=== PATIENT | female | born 1985 | race American Indian/Alaskan Native ===

== ENCOUNTER 2018-01-28 10:20 | Emergency (ER) | payer MEDICARE ==
[2018-01-28 11:17] LABS: Hematocrit 41.6 % (30.3-42.9); Hemoglobin 13.4 gm/dl (10.1-14.3); Mean Corpuscular HGB Conc 32 % (30-34); Mean Corpuscular Hemoglobin 28 pg (28-32); Mean Corpuscular Volume 86 fl (79-97); Platelet Count 305 K/mm3 (140-440); Red Blood Count 4.82 M/mm3 (3.65-5.03); Red Cell Distribution Width 12.8 % (13.2-15.2)
--- NOTE | 2018-01-28 11:28 | Emergency Department Report ---
ED Seizure HPI - General Chief Complaint: Seizure Stated Complaint: SEIZURE Time Seen by Provider: 01/28/18 11:09 Source: patient, EMS Mode of arrival: Ambulatory Limitations: No Limitations - History of Present Illness Initial Comments: 32-year-old female with history of MS under the care of a Dr. whitley at [place] had a witnessed seizure. Boyfriend told the mom to similar previous she had no trauma she didn't hit her head no fever no neck pain she proceeded to be transferred by EMS apparently she has second seizure she really has been ? compliant with her Keppra w/ hx of noncompliance is here for 2 witnessed seizures, received versed 5 mg iv enroute by ems for second sz en route, arrives protecting airway follows commands postictal and sedated s/p mark RODRIGUES Complaint: seizure Description of Episode: loss of consciousness Seizure History: known seizure disorder, history of non-compliance - Related Data Home Medications Medication Instructions Recorded Confirmed Last Taken Diclofenac Sodium [Voltaren] 100 gm TP 4XD 07/03/16 10/16/16 Unknown Previous Rx's Medication Instructions Recorded Last Taken Type Famotidine [Pepcid] 20 mg PO BID #60 tablet 07/07/16 Unknown Rx Gabapentin [Neurontin] 300 mg PO Q8HR #90 capsule 07/07/16 Unknown Rx Primidone [Mysoline] 50 mg PO BID #60 tablet 07/07/16 Unknown Rx levETIRAcetam [Keppra TAB] 500 mg PO BID #60 tablet 07/07/16 Unknown Rx Allergies Allergy/AdvReac Type Severity Reaction Status Date / Time No Known Allergies Allergy Verified 06/26/14 04:33 ED Review of Systems ROS: Stated complaint: SEIZURE Other details as noted in HPI Comment: Unobtainable due to pts medical conditions (patient is sedated and postictal unable to give complete review of systems family denies fever family denies trauma denies chest or abdominal pain or other injuries) ED Past Medical Hx - Past Medical History Previous Medical History?: Yes Hx Congestive Heart Failure: No Hx Diabetes: No Hx Seizures: Yes Hx Asthma: No Hx COPD: No Additional medical history: MS - Surgical History Past Surgical History?: No - Social History Smoking Status: Never Smoker - Medications Home Medications: Home Medications Medication Instructions Recorded Confirmed Last Taken Type Diclofenac Sodium [Voltaren] 100 gm TP 4XD 07/03/16 10/16/16 Unknown History Famotidine [Pepcid] 20 mg PO BID #60 tablet 07/07/16 10/16/16 Unknown Rx Gabapentin [Neurontin] 300 mg PO Q8HR #90 capsule 07/07/16 10/16/16 Unknown Rx Primidone [Mysoline] 50 mg PO BID #60 tablet 07/07/16 10/16/16 Unknown Rx levETIRAcetam [Keppra TAB] 500 mg PO BID #60 tablet 07/07/16 10/16/16 Unknown Rx ED Physical Exam - General Limitations: No Limitations, Other (postictal sedated en route) - Head Head exam: Present: atraumatic, normocephalic - Eye Eye exam: Present: PERRL, EOMI - ENT ENT exam: Present: normal exam, normal orophraynx, other (no stridor or drooling good gag) - Neck Neck exam: Present: normal inspection. Absent: tenderness, meningismus - Respiratory Respiratory exam: Present: normal lung sounds bilaterally. Absent: respiratory distress, wheezes, rales, rhonchi, stridor, chest wall tenderness, accessory muscle use, decreased breath sounds, prolonged expiratory - Cardiovascular Cardiovascular Exam: Present: regular rate, normal rhythm, normal heart sounds. Absent: irregular rhythm - GI/Abdominal GI/Abdominal exam: Present: soft. Absent: tenderness, guarding, rebound, rigid , mass, bruit, pulsatile mass - Extremities Exam Extremities exam: Present: normal inspection, normal capillary refill. Absent: pedal edema, joint swelling, calf tenderness - Neurological Exam Neurological exam: Present: CN II-XII intact, other (postictal patient is arousable following some commands but is sedated with good gag nonfocal neuro exam). Absent: motor sensory deficit ED Course Vital Signs 01/28/18 01/28/18 01/28/18 11:03 11:10 11:15 Temperature 97.9 F Pulse Rate 84 Respiratory 16 Rate Blood Pressure 131/69 Blood Pressure 131/69 [Left] O2 Sat by Pulse 99 100 100 Oximetry 01/28/18 01/28/18 01/28/18 11:31 11:45 12:01 Temperature Pulse Rate 72 68 Respiratory 17 16 Rate Blood Pressure 131/69 131/69 123/63 Blood Pressure [Left] O2 Sat by Pulse 98 100 100 Oximetry 01/28/18 01/28/18 01/28/18 12:15 12:31 12:45 Temperature Pulse Rate 68 69 71 Respiratory 17 19 18 Rate Blood Pressure 123/63 123/63 123/63 Blood Pressure [Left] O2 Sat by Pulse 100 100 99 Oximetry 01/28/18 01/28/18 01/28/18 13:00 13:15 13:31 Temperature Pulse Rate 69 67 65 Respiratory 17 19 18 Rate Blood Pressure 128/68 128/68 128/68 Blood Pressure [Left] O2 Sat by Pulse 97 97 99 Oximetry 01/28/18 01/28/18 01/28/18 14:03 14:15 14:31 Temperature Pulse Rate Respiratory Rate Blood Pressure 128/68 128/68 128/68 Blood Pressure [Left] O2 Sat by Pulse 99 98 98 Oximetry 01/28/18 14:45 Temperature Pulse Rate Respiratory Rate Blood Pressure 129/71 Blood Pressure [Left] O2 Sat by Pulse 98 Oximetry ED Medical Decision Making - Lab Data Result diagrams: 01/28/18 11:08 01/28/18 11:05 - Radiology Data Radiology results: report reviewed - Medical Decision Making Head CT shows chronic change. Old chart does state patient does have a history of poor compliance. She was a full dose of Keppra after A level was sent laboratory studies are unremarkable patient has no evidence would indicate drug or alcohol use is involved does seem to be chronic seizure disorder with noncompliance she is more arousable now is gone commands does recognize her mother does have a good gag reflex does seem to be able to be discharged home in the mother's care for further evaluation by her [place] neurologist Critical care attestation.: If time is entered above; I have spent that time in minutes in the direct care of this critically ill patient, excluding procedure time. ED Disposition Clinical Impression: Seizure, Noncompliance Disposition: DC-01 TO HOME OR SELFCARE Is pt being admited?: No Condition: Stable Instructions: Recurrent Seizures Adult (ED) Additional Instructions: See her and re-neurologist in 2 days return if new or alarming symptoms or call 911 Referrals: PRIMARY CARE, [Primary Care Provider] - 3-5 Days Time of Disposition: 15:01
[2018-01-28 11:30] LABS: BUN/Creatinine Ratio 18; Blood Urea Nitrogen 9 mg/dL (7-17); Calcium 8.8 mg/dL (8.4-10.2); Hemolysis Index 11
[2018-01-28] MEDS ORDERED: KEPPRA 500 MG/NS 0.82% 100 ML 500 MG/100 ML BAG IV ONE (13:00)
--- NOTE | 2018-01-28 14:38 | Cat Scan Report ---
CT HEAD WITHOUT CONTRAST: HISTORY: Seizure. TECHNIQUE: Sequential 2.5mm CT images. COMPARISON: none. FINDINGS: Mild to moderate nonspecific chronic white matter changes are again noted and unchanged. These findings appear slightly advanced for this persons age. This could be related to demyelination or chronic small vessel disease among other etiologies. There is no evidence for hemorrhage, mass, chronic infarct or extra-axial fluid collection. Ventricular size is normal. The posterior fossa contents are unremarkable. The calvarium is intact. The visualized sinuses and mastoid air cells are well-aerated. IMPRESSION: No change since 07/03/16. Chronic white matter changes as described above. Please correlate with the patient's clinical presentation and history.
[2018-01-28 14:50] VITALS: BP 129/71
== END 2018-01-28 15:58 | disposition home or self-care (01) ==
LOC: ED 10:20
DX: G40.909 Epilepsy, unspecified, not intractable, without status epilepticus (principal)
CPT/HCPCS: 36415; 70450; 80048; 84703; 85027; 96374; 99285; J1953

== ENCOUNTER 2018-03-25 01:46 | Emergency (ER) | payer MEDICARE ==
[2018-03-25] MEDS ORDERED: KEPPRA 1,000 MG/NS 0.75% 100ML 1,000 MG/100 ML BAG IV ONE (02:09)
[2018-03-25] MEDS ORDERED: NACL 0.9% 1000 ML 1,000 ML IV ONE (02:09)
--- NOTE | 2018-03-25 02:13 | Emergency Department Report ---
HPI - General Chief Complaint: Seizure Time Seen by Provider: 03/25/18 02:04 - HPI HPI: 32-year-old female presents to the emergency department by EMS from home after she had a seizure. It was not initially witnessed by family but they heard a "thump" and found her on the ground and did see some seizure-like activity when they found her. She does have a seizure history and is usually on Keppra. She also has a history of multiple sclerosis. Her last seizure prior to today was about 3 months ago. She received 5 mg of Versed in route. Mom says that she has been sleepy since the Versed but has occasionally been trying to talk with them. They say that her multiple sclerosis is rather advanced dementia does not walk but normally is awake and alert and conversive. Currently she is sleepy and/or postictal and is a poor historian. ED Past Medical Hx - Past Medical History Previous Medical History?: Yes Hx Congestive Heart Failure: No Hx Diabetes: No Hx Seizures: Yes Hx Asthma: No Hx COPD: No Additional medical history: MS - Social History Smoking Status: Never Smoker Substance Use Type: None - Medications Home Medications: Home Medications Medication Instructions Recorded Confirmed Last Taken Type Diclofenac Sodium [Voltaren] 100 gm TP 4XD 07/03/16 10/16/16 Unknown History Famotidine [Pepcid] 20 mg PO BID #60 tablet 07/07/16 10/16/16 Unknown Rx Gabapentin [Neurontin] 300 mg PO Q8HR #90 capsule 07/07/16 10/16/16 Unknown Rx Primidone [Mysoline] 50 mg PO BID #60 tablet 07/07/16 10/16/16 Unknown Rx levETIRAcetam [Keppra TAB] 500 mg PO BID #60 tablet 07/07/16 10/16/16 Unknown Rx levETIRAcetam [Keppra] 500 mg PO BID #28 tablet 01/28/18 Unknown Rx ED Review of Systems ROS: Stated complaint: SEIZURE Other details as noted in HPI Comment: Unobtainable due to pts medical conditions Physical Exam - Physical Exam Physical Exam: GENERAL: Patient is sleepy and/or postictal. HENT: Normocephalic. Atraumatic. Patient has moist mucous membranes. EYES: Patient spontaneously will open eyes or to verbal stimuli. Pupils equal reactive to light bilaterally. NECK: Supple. Trachea is midline. CHEST/LUNGS: Clear to auscultation. There is no respiratory distress noted. HEART/CARDIOVASCULAR: Regular. There is no tachycardia. There is no murmur. ABDOMEN: Abdomen is soft, nontender. Patient has normal bowel sounds. There is no abdominal distention. SKIN: Skin is warm and dry. NEURO: Patient is very fatigued and postictal but will occasionally open her eyes spontaneously and will do so to verbal cues. MUSCULOSKELETAL: There is no tenderness or deformity. There is no evidence of acute injury. ED Medical Decision Making - Lab Data Result diagrams: 03/25/18 02:42 03/25/18 02:42 - EKG Data -: EKG Interpreted by Oh EKG shows normal: sinus rhythm, axis, intervals, QRS complexes, ST-T waves Rate: normal - EKG Data When compared to previous EKG there are: previous EKG unavailable Interpretation: normal EKG - Radiology Data Radiology results: report reviewed EXAM: CT CERVICAL SPINE WO CON HISTORY: Seizure TECHNIQUE: CT imaging is acquired through the cervical spine without contrast. Transaxial, coronal and sagittal reformations are provided. PRIORS: None. FINDINGS: The cervical spine is intact. Vertebral body heights are preserved. No acute fracture or listhesis. Atlanto-dens interval and odontoid process are intact. Intervertebral disc spaces are preserved. No perivertebral soft tissue swelling or hematoma identified. Limited soft tissue exam of the visualized neck is unremarkable. IMPRESSION: No acute cervical spine fracture identified. Correlate with physical exam and follow up as warranted. Transcribed By: MB Dictated By: CARMEN HAMPTON MD Electronically Authenticated By: CARMEN HAMPTON MD Signed Date/Time: 03/25/18 0445 EXAM: CT HEAD/BRAIN WO CON HISTORY: Seizure TECHNIQUE: CT imaging acquired through the head without intravenous contrast. Transaxial reformations are provided. PRIORS: 01/28/2018, 07/03/2016 FINDINGS: The ventricles, cisterns and sulci are within normal limits. Septum pellucidum anatomic variation is again noted. No intraparenchymal or extra-axial mass, hemorrhage, or mass effect. Deep and subcortical white matter hypodensities that are slightly confluent in the left periventricular region are unchanged. Normal spherical shape of the globes. Paranasal sinuses and mastoid air cells are clear. No acute skull or facial fracture visualized. Small skull defect posterior to the left mastoid is unchanged. IMPRESSION: No acute intracranial abnormality. Chronic white matter findings are unchanged from prior CT exams and remain abnormal in this young patient. Follow-up MRI is recommended if these findings have not been previously further characterized. Transcribed By: LEONEL Dictated By: CARMEN HAMPTON MD Electronically Authenticated By: CARMEN HAMPTON MD Signed Date/Time: 03/25/18 3940 - Medical Decision Making Patient presented after having a seizure and fell from bed. No visible or obvious injuries but a CT scan of the head and cervical spines were done that did not show any acute process including any fracture, bleed, shift, mass, subluxation. Labs have been mostly unremarkable. She was loaded with Keppra. Vital signs stable throughout ED course. She was reevaluated multiple times for multiple hours and she has started to wake up and get back towards her baseline mental status. Prior to discharge she has begun speaking to her mother and will answer some of my questions. Mom is comfortable that she is close to her baseline status and she has good follow-up with her neurologist and primary. The patient does not walk at baseline so she was assisted into a wheelchair and mom took her home upon discharge. They have been instructed to return to the emergency department with any further seizures or any acute process. - Differential Diagnosis epilepsy, multiple sclerosis, TIA, fracture Critical Care Time: No Critical care attestation.: If time is entered above; I have spent that time in minutes in the direct care of this critically ill patient, excluding procedure time. ED Disposition Clinical Impression: Multiple sclerosis, Seizure Disposition: DC-01 TO HOME OR SELFCARE Is pt being admited?: No Condition: Stable Instructions: Epilepsy (ED) Additional Instructions: Please follow-up with your neurologist in the next few days. Continue taking your seizure medications. Return to the emergency department immediately with any return of further seizures or any worsening of her symptoms or any acute distress. Referrals: PRIMARY MD JULIETTE [Primary Care Provider] - [facility] Time of Disposition: 06:08
[2018-03-25 02:53] LABS: Basophils # (Auto) 0.1 K/mm3 (0.0-0.1); Basophils % (Auto) 0.9 % (0.0-1.8); Eosinophils # (Auto) 0.1 K/mm3 (0.0-0.4); Eosinophils % (Auto) 1.3 % (0.0-4.3); Hematocrit 37.7 % (30.3-42.9); Hemoglobin 12.7 gm/dl (10.1-14.3); Lymphocytes # (Auto) 0.9 K/mm3 (1.2-5.4); Lymphocytes % (Auto) 17.1 % (13.4-35.0); Mean Corpuscular HGB Conc 34 % (30-34); Mean Corpuscular Hemoglobin 28 pg (28-32); Mean Corpuscular Volume 84 fl (79-97); Monocytes # (Auto) 0.8 K/mm3 (0.0-0.8); Monocytes % (Auto) 14.8 % (0.0-7.3); Platelet Count 289 K/mm3 (140-440); Red Blood Count 4.48 M/mm3 (3.65-5.03); Red Cell Distribution Width 12.8 % (13.2-15.2)
[2018-03-25 03:27] LABS: Alanine Aminotransferase 9 units/L (7-56); BUN/Creatinine Ratio 16; Blood Urea Nitrogen 11 mg/dL (7-17); Calcium 8.9 mg/dL (8.4-10.2); Hemolysis Index 6
[2018-03-25 03:43] LABS: Albumin 3.8 g/dL (3.9-5)
--- NOTE | 2018-03-25 04:45 | Cat Scan Report ---
FINAL REPORT EXAM: CT HEAD/BRAIN WO CON HISTORY: Seizure TECHNIQUE: CT imaging acquired through the head without intravenous contrast. Transaxial reformations are provided. PRIORS: 01/28/2018, 07/03/2016 FINDINGS: The ventricles, cisterns and sulci are within normal limits. Septum pellucidum anatomic variation is again noted. No intraparenchymal or extra-axial mass, hemorrhage, or mass effect. Deep and subcortical white matter hypodensities that are slightly confluent in the left periventricular region are unchanged. Normal spherical shape of the globes. Paranasal sinuses and mastoid air cells are clear. No acute skull or facial fracture visualized. Small skull defect posterior to the left mastoid is unchanged. IMPRESSION: No acute intracranial abnormality. Chronic white matter findings are unchanged from prior CT exams and remain abnormal in this young patient. Follow-up MRI is recommended if these findings have not been previously further characterized.
--- NOTE | 2018-03-25 04:50 | Cat Scan Report ---
FINAL REPORT EXAM: CT CERVICAL SPINE WO CON HISTORY: Seizure TECHNIQUE: CT imaging is acquired through the cervical spine without contrast. Transaxial, coronal and sagittal reformations are provided. PRIORS: None. FINDINGS: The cervical spine is intact. Vertebral body heights are preserved. No acute fracture or listhesis. Atlanto-dens interval and odontoid process are intact. Intervertebral disc spaces are preserved. No perivertebral soft tissue swelling or hematoma identified. Limited soft tissue exam of the visualized neck is unremarkable. IMPRESSION: No acute cervical spine fracture identified. Correlate with physical exam and follow up as warranted.
[2018-03-25 06:37] VITALS: BP 118/77
== END 2018-03-25 06:35 | disposition home or self-care (01) ==
LOC: ED 01:46
DX: G35 Multiple sclerosis (principal); R56.9 Unspecified convulsions
CPT/HCPCS: 36415; 70450; 72125; 80053; 82550; 84703; 85025; 93005; 93010; 96361; 96365; 99285; G0480; J1953; J7030; 80320

== ENCOUNTER 2018-08-06 01:37 | Emergency (ER) | payer MEDICARE ==
[2018-08-06 02:22] LABS: Hematocrit 40.2 % (30.3-42.9); Hemoglobin 13.1 gm/dl (10.1-14.3); Mean Corpuscular HGB Conc 33 % (30-34); Mean Corpuscular Hemoglobin 29 pg (28-32); Mean Corpuscular Volume 90 fl (79-97); Platelet Count 253 K/mm3 (140-440); Red Blood Count 4.48 M/mm3 (3.65-5.03); Red Cell Distribution Width 12.7 % (13.2-15.2)
[2018-08-06] MEDS ORDERED: ATIVAN ONE (02:27)
[2018-08-06 02:37] LABS: Alanine Aminotransferase 42 units/L (7-56); Albumin 3.8 g/dL (3.9-5); BUN/Creatinine Ratio 33; Blood Urea Nitrogen 20 mg/dL (7-17); Calcium 8.6 mg/dL (8.4-10.2); Hemolysis Index 15
[2018-08-06] MEDS ORDERED: ATIVAN IV ONE (03:35)
[2018-08-06 04:01] LABS: Anisocytosis 1+; Band Neutrophils # (Manual) 0.1 K/mm3; Basophils % (Manual) 0 % (0.0-1.8); Platelet Estimate Consistent w Auto; Total Cells Counted 100
--- NOTE | 2018-08-06 05:43 | Cat Scan Report ---
FINAL REPORT EXAM: CT HEAD/BRAIN WO CON HISTORY: seizure, hx of MS TECHNIQUE: Routine axial imaging was obtained of the brain without IV contrast and compared to the study of 03/25/2018. FINDINGS: There is mild generalized volume loss. There is no evidence of acute stroke or hemorrhage. The ventricular system is appropriate in size and is symmetric. There is diminished attenuation of the periventricular white matter bilaterally suggesting chronic microvascular disease changes. The visualized sinuses are clear but the mastoid air cells are well pneumatized. The calvarium appears intact. IMPRESSION: Mild generalized atrophy with chronic ischemic white matter disease changes. No evidence of acute stroke or hemorrhage.
--- NOTE | 2018-08-06 06:19 | Emergency Department Report ---
ED Seizure HPI - General Chief Complaint: Seizure Stated Complaint: SEIZURE Time Seen by Provider: 08/06/18 03:13 Source: family Mode of arrival: Wheelchair Limitations: Physical Limitation - History of Present Illness Initial Comments: 33-year-old female with history of MS and seizures presents to the ED following seizure activity at home. She currently takes Depakote. Mother states she heard patient fall in another room, went in to check on her and she was on the floor having a seizure. Unsure if patient hit her head. States patient had no complaints prior to the seizure tonight. MD Complaint: seizure -: Sudden, During the night Description of Episode: loss of consciousness, tonic-clonic movement Witnessed:: Yes Trauma: Yes (fell to floor) Seizure History: known seizure disorder Place: home Possible Precipitating Event: none Associated Symptoms: denies: fever/chills Treatments Prior to Arrival: none - Related Data Home Medications Medication Instructions Recorded Confirmed Last Taken Diclofenac Sodium [Voltaren] 100 gm TP 4XD 07/03/16 08/06/18 Unknown Divalproex Sodium ER 1,000 mg PO DAILY 08/06/18 08/06/18 Unknown Gabapentin [Neurontin] 300 mg PO BID 08/06/18 08/06/18 Unknown Previous Rx's Medication Instructions Recorded Last Taken Type Famotidine [Pepcid] 20 mg PO BID #60 tablet 07/07/16 Unknown Rx Primidone [Mysoline] 50 mg PO BID #60 tablet 07/07/16 Unknown Rx Allergies Allergy/AdvReac Type Severity Reaction Status Date / Time No Known Allergies Allergy Verified 06/26/14 04:33 ED Review of Systems ROS: Stated complaint: SEIZURE Other details as noted in HPI Comment: All other systems reviewed and negative Constitutional: denies: fever Neurological: denies: headache ED Past Medical Hx - Past Medical History Hx Congestive Heart Failure: No Hx Diabetes: No Hx Seizures: Yes Hx Asthma: No Hx COPD: No Additional medical history: MS - Surgical History Past Surgical History?: No - Social History Smoking Status: Never Smoker Substance Use Type: None - Medications Home Medications: Home Medications Medication Instructions Recorded Confirmed Last Taken Type Diclofenac Sodium [Voltaren] 100 gm TP 4XD 07/03/16 08/06/18 Unknown History Famotidine [Pepcid] 20 mg PO BID #60 tablet 07/07/16 08/06/18 Unknown Rx Primidone [Mysoline] 50 mg PO BID #60 tablet 07/07/16 08/06/18 Unknown Rx Divalproex Sodium ER 1,000 mg PO DAILY 08/06/18 08/06/18 Unknown History Gabapentin [Neurontin] 300 mg PO BID 08/06/18 08/06/18 Unknown History ED Physical Exam - General Limitations: Physical Limitation General appearance: lethargic, postictal - Head Head exam: Present: atraumatic - Eye Eye exam: Present: normal appearance, PERRL - Neck Neck exam: Present: normal inspection - Respiratory Respiratory exam: Present: normal lung sounds bilaterally. Absent: respiratory distress - Cardiovascular Cardiovascular Exam: Present: regular rate, normal rhythm - GI/Abdominal GI/Abdominal exam: Present: soft. Absent: tenderness - Extremities Exam Extremities exam: Present: normal inspection - Neurological Exam Neurological exam: Present: other (lethargic, unable to arouse) - Skin Skin exam: Present: warm, dry, intact, normal color ED Course Vital Signs 08/06/18 08/06/18 08/06/18 01:43 02:13 02:15 Temperature 98.9 F Pulse Rate 72 78 Respiratory 20 16 16 Rate Blood Pressure 144/82 Blood Pressure 121/62 [Left] O2 Sat by Pulse 96 100 Oximetry ED Medical Decision Making - Lab Data Result diagrams: 08/06/18 02:05 08/06/18 02:05 - Medical Decision Making CT head negative. Patient has been sleeping in ER during his stay. Received 2 mg of Ativan for active seizure here in the ED earlier. Patient now easily arousable. Depakote level was low so patient was given PO Depakote. Able to take without difficulty. Mother states patient is at baseline. We'll discharge home at this time - Differential Diagnosis seizure, electrolyte abnormality, subtherapeutic meds Critical care attestation.: If time is entered above; I have spent that time in minutes in the direct care of this critically ill patient, excluding procedure time. ED Disposition Clinical Impression: Seizure Disposition: DC-01 TO HOME OR SELFCARE Is pt being admited?: No Condition: Stable Instructions: Epilepsy (ED) Referrals: PRIMARY CARE, [Primary Care Provider] - 3-5 Days Time of Disposition: 06:20
[2018-08-06 06:23] VITALS: BP 114/54
== END 2018-08-06 06:49 | disposition home or self-care (01) ==
LOC: ED 01:37
DX: R56.9 Unspecified convulsions (principal)
CPT/HCPCS: 36415; 70450; 80053; 80164; 84703; 85007; 85025; 96374; 99284; J2060

== ENCOUNTER 2019-02-17 12:28 | Inpatient (IN) | payer MEDICARE ==
--- NOTE | 2019-02-17 13:43 | Emergency Department Report ---
HPI - General Chief Complaint: Altered Mental Status Time Seen by Provider: 02/17/19 13:38 - HPI HPI: Room 9 The patient is a 33-year-old female presenting with a chief complaint seizures. The patient has a history of seizures and per mother has not been fully compliant with his Depakote for the last week. Family witnessed the patient had a seizure at home and EMS was called. EMS reported 3 more seizures and the patient was administered Versed in the ED the patient is postictal and opens her eyes to sternal rub but does not speak yet Location: [facility] Duration: [See above] Quality: Generalized tonic-clonic Severity: [See above] Modifying factors: [see above] Context: [see above] Mode of transportation: [not driving] ED Past Medical Hx - Past Medical History Previous Medical History?: Yes Hx Seizures: Yes Additional medical history: MS - Surgical History Past Surgical History?: No - Family History Family history: no significant - Social History Smoking Status: Never Smoker Substance Use Type: Alcohol (occasional) - Medications Home Medications: Home Medications Medication Instructions Recorded Confirmed Last Taken Type Diclofenac Sodium [Voltaren] 100 gm TP 4XD 07/03/16 08/06/18 Unknown History Famotidine [Pepcid] 20 mg PO BID #60 tablet 07/07/16 08/06/18 Unknown Rx Primidone [Mysoline] 50 mg PO BID #60 tablet 07/07/16 08/06/18 Unknown Rx Divalproex Sodium ER 1,000 mg PO DAILY 08/06/18 08/06/18 Unknown History Gabapentin [Neurontin] 300 mg PO BID 08/06/18 08/06/18 Unknown History ED Review of Systems ROS: Stated complaint: SEIZURE Other details as noted in HPI Comment: Unobtainable due to pts medical conditions Physical Exam - Physical Exam Vital Signs: Vital Signs 02/17/19 13:23 Pulse Rate 84 Respiratory 18 Rate Blood Pressure 116/64 O2 Sat by Pulse 100 Oximetry Physical Exam: GENERAL: The patient is well-developed well-nourished female lying on stretcher postictal sleeping not appearing to be in acute distress. [] HEENT: Normocephalic. Atraumatic. Extraocular motions are intact. Patient has moist mucous membranes. NECK: Supple. Trachea midline CHEST/LUNGS: Clear to auscultation. There is no respiratory distress noted. HEART/CARDIOVASCULAR: Regular. There is no tachycardia. There is no gallop rub or murmur. ABDOMEN: Abdomen is soft, nontender. Patient has normal bowel sounds. There is no abdominal distention. SKIN: There is no rash. There is trace bilateral lower extremity pitting edema. There is no diaphoresis. NEURO: The patient is postictal MUSCULOSKELETAL: There is no evidence of acute injury. ED Course Vital Signs 02/17/19 13:23 Pulse Rate 84 Respiratory 18 Rate Blood Pressure 116/64 O2 Sat by Pulse 100 Oximetry - Reevaluation(s) Reevaluation #1: 02/17/19 15:26 Patient remains postictal. Will admit to the hospital for status epilepticus ED Medical Decision Making - Lab Data Result diagrams: 02/17/19 13:46 02/17/19 13:46 Laboratory Tests 02/17/19 02/17/19 02/17/19 13:46 13:46 13:46 WBC 5.6 RBC 4.21 Hgb 12.3 Hct 37.0 MCV 88 MCH 29 MCHC 33 RDW 12.8 L Plt Count 282 Lymph % (Auto) 8.9 L [place] % (Auto) 10.3 H Eos % (Auto) 0.2 Baso % (Auto) 0.8 Lymph # 0.5 L [place] # 0.6 Eos # 0.0 Baso # 0.0 Seg Neutrophils % 79.8 H Seg Neutrophils # 4.4 Sodium 140 Potassium 4.5 Chloride 103.7 Carbon Dioxide 25 Anion Gap 16 BUN 9 Creatinine 0.5 L Estimated GFR > 60 BUN/Creatinine Ratio 18 Glucose 109 H Calcium 8.6 Magnesium 1.90 Total Bilirubin 0.40 AST 18 ALT 12 Alkaline Phosphatase 39 Total Protein 6.5 Albumin 3.8 L Albumin/Globulin Ratio 1.4 HCG, Qual Valproic Acid < 2.8 L 02/17/19 13:46 WBC RBC Hgb Hct MCV MCH MCHC RDW Plt Count Lymph % (Auto) [place] % (Auto) Eos % (Auto) Baso % (Auto) Lymph # [place] # Eos # Baso # Seg Neutrophils % Seg Neutrophils # Sodium Potassium Chloride Carbon Dioxide Anion Gap BUN Creatinine Estimated GFR BUN/Creatinine Ratio Glucose Calcium Magnesium Total Bilirubin AST ALT Alkaline Phosphatase Total Protein Albumin Albumin/Globulin Ratio HCG, Qual Negative Valproic Acid - Radiology Data Radiology results: report reviewed (CT head), image reviewed (CT head) [facility] [address] [place] [address] Cat Scan Report Signed Patient: JUSTIN WELLS MR# : [id number] : 1985 Acct:[id number] Age/Sex: 33 / F ADM Date: 02/17/19 Loc: ED Attending Dr: Ordering Physician: RAJIV ARANA MD Date of Service: 02/17/19 Procedure(s): CT head/brain wo con Accession Number(s): [id number] cc: RAJIV ARANA MD CT HEAD WITHOUT CONTRAST: HISTORY: Multiple seizures, MS. TECHNIQUE: Sequential CT images without contrast. FINDINGS: Compared to 08/06/18. Mild cortical volume loss and mild nonspecific chronic white matter changes are again identified. There is no evidence for hemorrhage, mass or extra-axial fluid collection. No large area of acute ischemia is identified. Focal areas of diminished attenuation in the periventricular white matter of left posterior frontal and bilateral parietal lobes is again noted and probably related to history of multiple sclerosis. These findings are stable. The posterior fossa contents are unremarkable. Moderate mucosal thickening is noted in the right maxillary sinus. The remaining sinuses and mastoid air cells are clear. IMPRESSION: No acute intracranial process. Mild volume loss and white matter changes as described. No significant change since 08/06/18. Transcribed By: TTR Dictated By: SALENA NATH JR, MD Electronically Authenticated By: SALENA NATH JR, MD Signed Date/Time: 02/17/191513 DD/ 151 TD/TT: 02/17/19 151 - Differential Diagnosis seizures, status epilepticus Critical care attestation.: If time is entered above; I have spent that time in minutes in the direct care of this critically ill patient, excluding procedure time. ED Disposition Clinical Impression: Status epilepticus Disposition: - OP ADMIT IP TO THIS HOSP Is pt being admited?: Yes Does the pt Need Aspirin: No Condition: Fair Referrals: DEV BARRETT MD [Primary Care Provider] - 3-5 Days Time of Disposition: 15:25 (hospitalist paged (Dr Gallego))
[2019-02-17 14:04] LABS: Basophils % (Auto) 0.8 % (0.0-1.8); Eosinophils % (Auto) 0.2 % (0.0-4.3); Hemoglobin 12.3 gm/dl (10.1-14.3); Lymphocytes # (Auto) 0.5 K/mm3 (1.2-5.4); Lymphocytes % (Auto) 8.9 % (13.4-35.0); Mean Corpuscular HGB Conc 33 % (30-34); Mean Corpuscular Volume 88 fl (79-97); Monocytes # (Auto) 0.6 K/mm3 (0.0-0.8); Monocytes % (Auto) 10.3 % (0.0-7.3); Platelet Count 282 K/mm3 (140-440); Red Blood Count 4.21 M/mm3 (3.65-5.03); Red Cell Distribution Width 12.8 % (13.2-15.2)
[2019-02-17] MEDS ORDERED: DepaCON 500 MG in NACL 0.9% 100 ML IV ONE (14:26)
[2019-02-17 14:27] LABS: Alanine Aminotransferase 12 units/L (7-56); Albumin 3.8 g/dL (3.9-5); BUN/Creatinine Ratio 18; Blood Urea Nitrogen 9 mg/dL (7-17); Calcium 8.6 mg/dL (8.4-10.2); Hemolysis Index 36
--- NOTE | 2019-02-17 15:18 | Cat Scan Report ---
CT HEAD WITHOUT CONTRAST: HISTORY: Multiple seizures, MS. TECHNIQUE: Sequential CT images without contrast. FINDINGS: Compared to 08/06/18. Mild cortical volume loss and mild nonspecific chronic white matter changes are again identified. There is no evidence for hemorrhage, mass or extra-axial fluid collection. No large area of acute ischemia is identified. Focal areas of diminished attenuation in the periventricular white matter of left posterior frontal and bilateral parietal lobes is again noted and probably related to history of multiple sclerosis. These findings are stable. The posterior fossa contents are unremarkable. Moderate mucosal thickening is noted in the right maxillary sinus. The remaining sinuses and mastoid air cells are clear. IMPRESSION: No acute intracranial process. Mild volume loss and white matter changes as described. No significant change since 08/06/18.
--- NOTE | 2019-02-17 22:15 | Event Note ---
Date: 02/17/19 See H/p in reports Seizur -uncontolled Noncompliance
[2019-02-17] MEDS ORDERED: DILAUDID IV PRN (22:18)
[2019-02-17] MEDS ORDERED: TYLENOL PO PRN (22:18)
[2019-02-17] MEDS ORDERED: SODIUM CHLORIDE FLUSH SYRINGE 10 ML IV PRN (22:18)
[2019-02-17] MEDS ORDERED: ZOFRAN IV PRN (22:18)
[2019-02-17] MEDS ORDERED: PERCOCET 5/325 PO PRN (22:18)
[2019-02-17] MEDS: NACL 0.9% 1000 ML 1,000 ML IV SCH (23:40)
[2019-02-17] MEDS: SODIUM CHLORIDE FLUSH SYRINGE 10 ML IV SCH (23:41)
[2019-02-17] MEDS: NEURONTIN PO SCH (23:41)
[2019-02-17] MEDS: MYSOLINE PO SCH (23:41)
[2019-02-17] MEDS: KEPPRA 750 MG in NACL 0.9% 100 ML IV SCH (23:41)
[2019-02-18 06:05] LABS: Basophils % (Auto) 0.6 % (0.0-1.8); Eosinophils % (Auto) 0.4 % (0.0-4.3); Hemoglobin 11.2 gm/dl (10.1-14.3); Lymphocytes # (Auto) 1.6 K/mm3 (1.2-5.4); Lymphocytes % (Auto) 25.6 % (13.4-35.0); Mean Corpuscular HGB Conc 33 % (30-34); Mean Corpuscular Volume 88 fl (79-97); Monocytes # (Auto) 0.8 K/mm3 (0.0-0.8); Monocytes % (Auto) 13.9 % (0.0-7.3); Platelet Count 270 K/mm3 (140-440); Red Blood Count 3.87 M/mm3 (3.65-5.03); Red Cell Distribution Width 12.8 % (13.2-15.2)
[2019-02-18 06:28] LABS: Alanine Aminotransferase 9 units/L (7-56); Albumin 3.3 g/dL (3.9-5); BUN/Creatinine Ratio 14; Blood Urea Nitrogen 7 mg/dL (7-17); Calcium 8.6 mg/dL (8.4-10.2); Hemolysis Index 6
--- NOTE | 2019-02-18 07:27 | History and Physical Report ---
CHIEF COMPLAINT: Recurrent seizures. HISTORY OF PRESENT ILLNESS: A 33-year-old female with history of seizures. Not compliant with her Depakote as per mother, comes in for seizures at home. Also en route, as per EMS, the patient had 3 tonic-clonic seizures. The patient is altered and postictal. Opens her eyes to deep sternal rub. Decreased responsiveness. PAST MEDICAL HISTORY: Seizure disorder and questionable multiple sclerosis. PAST SURGICAL HISTORY: None. FAMILY HISTORY: Hypertension. SOCIAL HISTORY: Does not smoke. Alcohol occasionally. CURRENT MEDICATIONS: Depakote 5000 daily and Pepcid 20 mg twice a day. Primidone 50 mg twice a day. REVIEW OF SYSTEMS: Significant for seizures and altered sensorium. Otherwise, review of systems is negative. PHYSICAL EXAMINATION: GENERAL: Young female, cooperative during the examination plus decreased responsiveness. Wakes up with a deep sternal rub. VITAL SIGNS: Temperature is 98.9. Pulse is 67. Respirations are 16. Sats are 100%. Blood pressure 132/82. HEENT: Unremarkable. Pupils equal and reactive. NECK: Supple, no lymphadenopathy, no thyromegaly. LUNGS: Clear to auscultation and percussion. Good air entry. CARDIOVASCULAR SYSTEM: S1, S2 heard. No gallop, no murmur, no rub. Apical impulse in left fifth intercostal space in midclavicular line. ABDOMEN: Soft and benign. No hepatosplenomegaly. No guarding, no rigidity. Hernial orifices are normal. EXTREMITIES: Good pedal pulses. No pedal edema. CENTRAL NERVOUS SYSTEM: Repeat exam, the patient has decreased responsiveness, but wakes up with deep sternal rub. LABORATORY DATA: Significant for white count of 5600, H and H of 12.3 and 37.0, platelet count of 282,000. Electrolytes are normal. Glucose is 109. Albumin is 3.8. Valproic acid is less than 2.8. ASSESSMENT AND PLAN: 1. Uncontrolled seizures versus status epilepticus. The patient started on IV Keppra. Also primidone to be continued. Will consult Neurology whether the Depakote can be discontinued and started on Keppra permanently. Acute encephalopathy secondary to the recurrent seizures. 2. Deep venous thrombosis prophylaxis, Lovenox 40 mg subcutaneous daily. JOB# [id number] [facility]
[2019-02-18] MEDS ORDERED: LYCOP PO SCH (10:00)
[2019-02-18] MEDS ORDERED: COQ10 PO SCH (10:00)
[2019-02-18] MEDS ORDERED: MV MIN PO SCH (10:00)
[2019-02-18] MEDS ORDERED: FOLIC PO SCH (10:00)
[2019-02-18] MEDS ORDERED: VIT K PO SCH (10:00)
[2019-02-18] MEDS: LASIX PO SCH (10:19)
[2019-02-18] MEDS: SODIUM CHLORIDE FLUSH SYRINGE 10 ML IV SCH ×2 (10:19→21:17)
[2019-02-18] MEDS: THERAGRAN-M Tab PO SCH (10:19)
[2019-02-18] MEDS: MYSOLINE PO SCH ×2 (10:19→21:16)
[2019-02-18] MEDS: NEURONTIN PO SCH ×2 (10:19→21:16)
[2019-02-18] MEDS: KEPPRA 750 MG in NACL 0.9% 100 ML IV SCH ×2 (10:20→21:18)
--- NOTE | 2019-02-18 13:35 | Consultation ---
History of Present Illness Consult date: 02/18/19 Requesting physician: MO SHIRLEY Reason for Consult: Seizures History of present illness: The patient is a 33 year old left handed female with history of MS and seizure disorder as per past notes and presented to ER with a flurry of seizures. There is no family available to help with history and she is still a bit postictal, not able to tell me very many details. In reviewing old records, it appearsd that she presented to the ER because of headache and blurred vision in 2013. There were multiple ring enhancing lesions on her MRI scan at that time. After oncology and infectious disease evaluation, it was decided that these lesions must be demyelinating. She has had multiple admissions to ER for seizures and noncompliance over time. She is followed by a neurologist at [place] according to past notes. The pt. states that her seizures began when she was in high school. CT scan on this admission is remarkable for atrophy and areas of attenuation. Depakote level was negligible on admission. She was given IV valproate and started on Keppra 750 mg BID. At present she is feeling well, denies headache or nausea. Lives with mother. Past History Past Medical History: seizures Past Surgical History: No surgical history Social history: lives with family. denies: smoking, alcohol abuse Family history: no significant family history Medications and Allergies Allergies Allergy/AdvReac Type Severity Reaction Status Date / Time No Known Allergies Allergy Verified 06/26/14 04:33 Home Medications Medication Instructions Recorded Confirmed Last Taken Type Primidone [Mysoline] 50 mg PO BID #60 tablet 07/07/16 02/17/19 02/17/19 Rx Divalproex Sodium ER 1,000 mg PO DAILY 08/06/18 02/17/19 02/17/19 History Gabapentin [Neurontin] 300 mg PO BID 08/06/18 02/17/19 02/17/19 History Furosemide [Lasix] 20 mg PO QDAY 02/17/19 02/17/19 02/17/19 History Mv-Min/Folic/Vit K/Lycop/Coq10 1 each PO DAILY 02/17/19 02/17/19 02/17/19 History [Daily Multivitamin Capsule] Active Meds: Active Medications Acetaminophen (Tylenol) 650 mg PO Q4H PRN PRN Reason: Pain MILD(1-3)/Fever >100.5/[facility] Divalproex Sodium (Depakote Er) 1,000 mg PO QDAY [facility] Divalproex Sodium (Depakote Dr) 500 mg PO BID [facility] Enoxaparin Sodium (Lovenox) 40 mg SUB-Q QDAY@2200 [facility] Furosemide (Lasix) 20 mg PO QDAY [facility] Last Admin: 02/18/19 10:19 Dose: 20 mg Documented by: Gabapentin (Neurontin) 300 mg PO BID [facility] Last Admin: 02/18/19 10:19 Dose: 300 mg Documented by: Hydromorphone HCl (Dilaudid) 0.5 mg IV Q3H PRN PRN Reason: Pain , Severe (7-10) Sodium Chloride (Nacl 0.9% 1000 Ml) 1,000 mls @ 75 mls/hr IV DIRECT [facility] Last Admin: 02/17/19 23:40 Dose: 75 mls/hr Documented by: Levetiracetam 750 mg/ Sodium (Chloride) 107.5 mls @ 400 mls/hr IV Q12HR [facility] Last Admin: 02/18/19 10:20 Dose: 400 mls/hr Documented by: Multivitamins/Minerals (Theragran-M Tab) 1 each PO QDAY [facility] Last Admin: 02/18/19 10:19 Dose: 1 each Documented by: Ondansetron HCl (Zofran) 4 mg IV Q8H PRN PRN Reason: Nausea And Vomiting Oxycodone/Acetaminophen (Percocet 5/325) 1 tab PO Q6H PRN PRN Reason: Pain, Moderate (4-6) Primidone (Mysoline) 50 mg PO BID [facility] Last Admin: 02/18/19 10:19 Dose: 50 mg Documented by: Sodium Chloride (Sodium Chloride Flush Syringe 10 Ml) 10 ml IV BID [facility] Last Admin: 02/18/19 10:19 Dose: 10 ml Documented by: Sodium Chloride (Sodium Chloride Flush Syringe 10 Ml) 10 ml IV PRN PRN PRN Reason: LINE FLUSH Review of Systems Constitutional: fatigue, weakness, no fever, no chills Ears, nose, mouth and throat: no decreased hearing, no dysphagia Cardiovascular: no chest pain, no palpitations, no rapid/irregular heart beat, no syncope, no lightheadedness, no shortness of breath Respiratory: no cough, no excessive sputum, no hemoptysis, no shortness of breath, no dyspnea on exertion, no congestion Gastrointestinal: no abdominal pain, no nausea, no vomiting, no diarrhea, no constipation Genitourinary Female: no dysuria, no urinary frequency, no urgency Musculoskeletal: no arm numbness/tingling, no leg numbness/tingling Integumentary: no rash, no pruritis Neurological: weakness, numbness, seizures, lack of coordination, gait dysfunction, motor disturbance, sensory deficit, no head injury Physical Examination - Vital Signs Vital Signs: Vital Signs Pulse Resp 70 7 L 02/17/19 13:13 02/17/19 13:13 - Physical Exam Narrative exam: General - Resting in bed comfortably. Still drowsy, postictal. Neurological exam - speech slow and slightly slurred. 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 V-1 V-3: decreased to touch on left. hearing intact, tongue midline, face symmetric. Motor - mild weakness on right. Effort is in question. 5/5 in most groups on left. Reflexes - trace throughout Sensory - decreased touch on right. Cerebellar - FTN with dysmetria. Fine finger movements are difficult on right as are Hermes. Clumsy right hand. Results - Laboratory Findings CBC and BMP: 02/18/19 05:41 02/18/19 05:41 Abnormal Lab Findings: Abnormal Labs 02/17/19 02/17/19 02/17/19 13:46 13:46 13:46 RDW 12.8 L Lymph % (Auto) 8.9 L [place] % (Auto) 10.3 H Lymph # 0.5 L Seg Neutrophils % 79.8 H Creatinine 0.5 L Glucose 109 H Alkaline Phosphatase Total Protein Albumin 3.8 L Valproic Acid < 2.8 L 02/18/19 02/18/19 05:41 05:41 RDW 12.8 L Lymph % (Auto) [place] % (Auto) 13.9 H Lymph # Seg Neutrophils % Creatinine 0.5 L Glucose Alkaline Phosphatase 33 L Total Protein 5.8 L Albumin 3.3 L Valproic Acid Assessment and Plan 33 year old female with diagnosis of MS and seizure disorder presented with seizures to EDyesterday and an anticonvulsant level that was negligible. She has responded to meds. Apparently has a neurologist on the outside who follows her. CT reveals atrophy and areas of decreased attenuation. 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 This woukl explain why she is not on a disease modifying agent such as interferon or copaxone. Plan - Will try to speak with family to find out more about her history and follow-up. For now will maintain on Depakote, Keppra and Mysoline.
--- NOTE | 2019-02-18 14:11 | Progress Note ---
Assessment and Plan Assessment and plan: Status epilepticus. Resolving. Continue Keppra 750 mg twice a day, Depakote and valproic acid. Neurology following. Acute encephalopathy. Etiology secondary to above. Improving. Continue supportive care. DVT prophylaxis. History Interval history: No new issues overnight. No reports of seizure activity since admission. Hospitalist Physical - Constitutional Vitals: Temp Pulse Resp BP Pulse Ox 98.4 F 66 20 106/49 100 02/18/19 11:30 02/18/19 11:30 02/18/19 11:30 02/18/19 11:30 02/18/19 11:30 General appearance: Present: no acute distress, well-nourished - EENT Eyes: Present: PERRL, EOM intact ENT: hearing intact, clear oral mucosa, dentition normal - Neck Neck: Present: supple, normal ROM - Respiratory Respiratory effort: normal Respiratory: bilateral: CTA - Cardiovascular Rhythm: regular Heart Sounds: Present: S1 & S2. Absent: gallop, rub - Extremities Extremities: no ischemia, No edema, Full ROM - Abdominal General gastrointestinal: soft, non-tender, non-distended, normal bowel sounds - Integumentary Integumentary: Present: clear, warm, dry - Neurologic Neurologic: CNII-XII intact, moves all extremities Results - Labs CBC & Chem 7: 02/18/19 05:41 02/18/19 05:41 Labs: Laboratory Last Values WBC 6.1 K/mm3 (4.5-11.0) 02/18/19 05:41 RBC 3.87 M/mm3 (3.65-5.03) 02/18/19 05:41 Hgb 11.2 gm/dl (10.1-14.3) 02/18/19 05:41 Hct 34.0 % (30.3-42.9) 02/18/19 05:41 MCV 88 fl (79-97) 02/18/19 05:41 MCH 29 pg (28-32) 02/18/19 05:41 MCHC 33 % (30-34) 02/18/19 05:41 RDW 12.8 % (13.2-15.2) L 02/18/19 05:41 Plt Count 270 K/mm3 (140-440) 02/18/19 05:41 Lymph % (Auto) 25.6 % (13.4-35.0) 02/18/19 05:41 [place] % (Auto) 13.9 % (0.0-7.3) H 02/18/19 05:41 Eos % (Auto) 0.4 % (0.0-4.3) 02/18/19 05:41 Baso % (Auto) 0.6 % (0.0-1.8) 02/18/19 05:41 Lymph # 1.6 K/mm3 (1.2-5.4) 02/18/19 05:41 [place] # 0.8 K/mm3 (0.0-0.8) 02/18/19 05:41 Eos # 0.0 K/mm3 (0.0-0.4) 02/18/19 05:41 Baso # 0.0 K/mm3 (0.0-0.1) 02/18/19 05:41 Seg Neutrophils % 59.5 % (40.0-70.0) 02/18/19 05:41 Seg Neutrophils # 3.6 K/mm3 (1.8-7.7) 02/18/19 05:41 Sodium 141 mmol/L (137-145) 02/18/19 05:41 Potassium 4.0 mmol/L (3.6-5.0) 02/18/19 05:41 Chloride 105.7 mmol/L (98-107) 02/18/19 05:41 Carbon Dioxide 26 mmol/L (22-30) 02/18/19 05:41 Anion Gap 13 mmol/L 02/18/19 05:41 BUN 7 mg/dL (7-17) 02/18/19 05:41 Creatinine 0.5 mg/dL (0.7-1.2) L 02/18/19 05:41 Estimated GFR > 60 ml/min 02/18/19 05:41 BUN/Creatinine Ratio 14 % 02/18/19 05:41 Glucose 78 mg/dL (65-100) 02/18/19 05:41 Hemoglobin A1c 5.1 % (4-6) 02/17/19 23:41 Calcium 8.6 mg/dL (8.4-10.2) 02/18/19 05:41 Magnesium 1.90 mg/dL (1.7-2.3) 02/17/19 13:46 Total Bilirubin 0.60 mg/dL (0.1-1.2) 02/18/19 05:41 AST 12 units/L (5-40) 02/18/19 05:41 ALT 9 units/L (7-56) 02/18/19 05:41 Alkaline Phosphatase 33 units/L (35-129) L 02/18/19 05:41 Total Protein 5.8 g/dL (6.3-8.2) L 02/18/19 05:41 Albumin 3.3 g/dL (3.9-5) L 02/18/19 05:41 Albumin/Globulin Ratio 1.3 % 02/18/19 05:41 HCG, Qual Negative (Negative) 02/17/19 13:46 Valproic Acid < 2.8 ug/mL (50-100) L 02/17/19 13:46 Active Medications - Current Medications Current Medications: Generic Name Dose Route Start Last Admin Trade Name Freq PRN Reason Stop Dose Admin Acetaminophen 650 mg 02/17/19 22:18 Tylenol PO Q4H PRN Pain MILD(1-3)/Fever >100.5/[facility] Divalproex Sodium 500 mg 02/18/19 22:[address] PO BID [facility] Enoxaparin Sodium 40 mg 02/18/19 22:00 Lovenox SUB-Q QDAY@2200 [facility] Furosemide 20 mg 02/18/19 10:00 02/18/19 10:19 Lasix PO 20 mg QDAY [facility] Administration Gabapentin 300 mg 02/17/19 23:00 02/18/19 10:19 Neurontin PO 300 mg BID [facility] Administration Hydromorphone HCl 0.5 mg 02/17/19 22:18 Dilaudid IV Q3H PRN Pain , Severe (7-10) Sodium Chloride 1,000 mls @ 75 mls/hr 02/17/19 23:00 02/17/19 23:40 Nacl 0.9% 1000 Ml IV 75 mls/hr DIRECT [facility] Administration Levetiracetam 750 mg/ Sodium 107.5 mls @ 400 mls/hr 02/17/19 23:00 02/18/19 10:20 Chloride IV 400 mls/hr Q12HR [facility] Administration Multivitamins/Minerals 1 each 02/18/19 10:00 02/18/19 10:19 Theragran-M Tab PO 1 each QDAY [facility] Administration Ondansetron HCl 4 mg 02/17/19 22:18 Zofran IV Q8H PRN Nausea And Vomiting Oxycodone/Acetaminophen 1 tab 02/17/19 22:18 Percocet 5/325 PO Q6H PRN Pain, Moderate (4-6) Primidone 50 mg 02/17/19 23:00 02/18/19 10:19 Mysoline PO 50 mg BID [facility] Administration Sodium Chloride 10 ml 02/18/19 10:00 02/18/19 10:19 Sodium Chloride Flush Syringe 10 Ml IV 10 ml BID [facility] Administration Sodium Chloride 10 ml 02/17/19 22:18 Sodium Chloride Flush Syringe 10 Ml IV PRN PRN LINE FLUSH
[2019-02-18] MEDS: NACL 0.9% 1000 ML 1,000 ML IV SCH (21:14)
[2019-02-18] MEDS: LOVENOX SUB-Q SCH (21:16)
[2019-02-19] MEDS: LASIX PO SCH (09:57)
[2019-02-19] MEDS: MYSOLINE PO SCH ×2 (09:57→21:13)
[2019-02-19] MEDS: NEURONTIN PO SCH ×2 (09:57→21:14)
[2019-02-19] MEDS: SODIUM CHLORIDE FLUSH SYRINGE 10 ML IV SCH ×2 (09:58→21:18)
[2019-02-19] MEDS: THERAGRAN-M Tab PO SCH (09:58)
[2019-02-19] MEDS: KEPPRA 750 MG in NACL 0.9% 100 ML IV SCH ×2 (10:05→21:14)
--- NOTE | 2019-02-19 12:27 | Progress Note ---
Assessment and Plan 33 year old female with diagnosis of MS and seizure disorder presented with seizures to ED, and an anticonvulsant level that was negligible. She has responded to meds. Apparently has a neurologist on the outside who follows her. CT reveals atrophy and areas of decreased attenuation. I have attempted calling the patient's mother and left messages at 2 phone numbers. Will continue. Plan - Will try to speak with family to find out more about her history and follow-up. Continue Depakote, Mysoline and Keppra for now. Subjective Date of service: 02/19/19 Principal diagnosis: seizures Interval history: The patient is a 33 year old left handed female with history of MS and seizure disorder as per past notes, presented to ER with a flurry of seizures. Valproate level was negligible. She has been restarted on depakote and we have retained Keppra as well. She has had no further seizures. PT worked with her today. Objective - Exam Narrative Exam: General - Resting in bed comfortably. Alert and awake. Neurological exam - speech slow and slightly slurred. 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 V-1 V-3: decreased to touch on left. hearing intact, tongue midline, face symmetric. Motor - mild weakness on right. Effort is in question. 5/5 in most groups on left. Reflexes - trace throughout Sensory - decreased touch on right. Cerebellar - FTN with dysmetria. Fine finger movements are difficult on right as are Hermes. Clumsy right hand. - Vital Sign Vital Signs - 12hr 02/19/19 02/19/19 02/19/19 04:01 08:27 11:00 Temperature 98.1 F 98.0 F Pulse Rate 62 60 64 Respiratory 18 16 Rate Blood Pressure 102/47 96/54 O2 Sat by Pulse 100 99 Oximetry - Laboratory Findings CBC and BMP: 02/18/19 05:41 02/18/19 05:41 Abnormal Lab Findings: Abnormal Labs 02/17/19 02/17/19 02/17/19 13:46 13:46 13:46 RDW 12.8 L Lymph % (Auto) 8.9 L [place] % (Auto) 10.3 H Lymph # 0.5 L Seg Neutrophils % 79.8 H Creatinine 0.5 L Glucose 109 H Alkaline Phosphatase Total Protein Albumin 3.8 L Valproic Acid < 2.8 L 02/18/19 02/18/19 05:41 05:41 RDW 12.8 L Lymph % (Auto) [place] % (Auto) 13.9 H Lymph # Seg Neutrophils % Creatinine 0.5 L Glucose Alkaline Phosphatase 33 L Total Protein 5.8 L Albumin 3.3 L Valproic Acid
--- NOTE | 2019-02-19 13:20 | Progress Note ---
Assessment and Plan Assessment and plan: Status epilepticus. Resolving. Continue Keppra 750 mg twice a day, Depakote and valproic acid. Neurology following. Apparently has a neurologist on the outside who follows her. CT reveals atrophy and areas of decreased attenuation. Acute encephalopathy. Etiology secondary to above. Improving. Continue supportive care. DVT prophylaxis. History Interval history: No new issues overnight. No reports of seizure activity since admission. Hospitalist Physical - Constitutional Vitals: Temp Pulse Resp BP Pulse Ox 98.0 F 64 16 96/54 99 02/19/19 08:27 02/19/19 11:00 02/19/19 08:27 02/19/19 08:27 02/19/19 08:27 General appearance: Present: no acute distress, well-nourished - EENT Eyes: Present: PERRL, EOM intact ENT: hearing intact, clear oral mucosa, dentition normal - Neck Neck: Present: supple, normal ROM - Respiratory Respiratory effort: normal Respiratory: bilateral: CTA - Cardiovascular Rhythm: regular Heart Sounds: Present: S1 & S2. Absent: gallop, rub - Extremities Extremities: no ischemia, No edema, Full ROM - Abdominal General gastrointestinal: soft, non-tender, non-distended, normal bowel sounds - Integumentary Integumentary: Present: clear, warm, dry - Neurologic Neurologic: CNII-XII intact, moves all extremities Results - Labs CBC & Chem 7: 02/18/19 05:41 02/18/19 05:41 Labs: Laboratory Last Values WBC 6.1 K/mm3 (4.5-11.0) 02/18/19 05:41 RBC 3.87 M/mm3 (3.65-5.03) 02/18/19 05:41 Hgb 11.2 gm/dl (10.1-14.3) 02/18/19 05:41 Hct 34.0 % (30.3-42.9) 02/18/19 05:41 MCV 88 fl (79-97) 02/18/19 05:41 MCH 29 pg (28-32) 02/18/19 05:41 MCHC 33 % (30-34) 02/18/19 05:41 RDW 12.8 % (13.2-15.2) L 02/18/19 05:41 Plt Count 270 K/mm3 (140-440) 02/18/19 05:41 Lymph % (Auto) 25.6 % (13.4-35.0) 02/18/19 05:41 Cameron % (Auto) 13.9 % (0.0-7.3) H 02/18/19 05:41 Eos % (Auto) 0.4 % (0.0-4.3) 02/18/19 05:41 Baso % (Auto) 0.6 % (0.0-1.8) 02/18/19 05:41 Lymph # 1.6 K/mm3 (1.2-5.4) 02/18/19 05:41 Cameron # 0.8 K/mm3 (0.0-0.8) 02/18/19 05:41 Eos # 0.0 K/mm3 (0.0-0.4) 02/18/19 05:41 Baso # 0.0 K/mm3 (0.0-0.1) 02/18/19 05:41 Seg Neutrophils % 59.5 % (40.0-70.0) 02/18/19 05:41 Seg Neutrophils # 3.6 K/mm3 (1.8-7.7) 02/18/19 05:41 Sodium 141 mmol/L (137-145) 02/18/19 05:41 Potassium 4.0 mmol/L (3.6-5.0) 02/18/19 05:41 Chloride 105.7 mmol/L (98-107) 02/18/19 05:41 Carbon Dioxide 26 mmol/L (22-30) 02/18/19 05:41 Anion Gap 13 mmol/L 02/18/19 05:41 BUN 7 mg/dL (7-17) 02/18/19 05:41 Creatinine 0.5 mg/dL (0.7-1.2) L 02/18/19 05:41 Estimated GFR > 60 ml/min 02/18/19 05:41 BUN/Creatinine Ratio 14 % 02/18/19 05:41 Glucose 78 mg/dL (65-100) 02/18/19 05:41 Hemoglobin A1c 5.1 % (4-6) 02/17/19 23:41 Calcium 8.6 mg/dL (8.4-10.2) 02/18/19 05:41 Magnesium 1.90 mg/dL (1.7-2.3) 02/17/19 13:46 Total Bilirubin 0.60 mg/dL (0.1-1.2) 02/18/19 05:41 AST 12 units/L (5-40) 02/18/19 05:41 ALT 9 units/L (7-56) 02/18/19 05:41 Alkaline Phosphatase 33 units/L (35-129) L 02/18/19 05:41 Total Protein 5.8 g/dL (6.3-8.2) L 02/18/19 05:41 Albumin 3.3 g/dL (3.9-5) L 02/18/19 05:41 Albumin/Globulin Ratio 1.3 % 02/18/19 05:41 HCG, Qual Negative (Negative) 02/17/19 13:46 Valproic Acid < 2.8 ug/mL (50-100) L 02/17/19 13:46 Active Medications - Current Medications Current Medications: Generic Name Dose Route Start Last Admin Trade Name Freq PRN Reason Stop Dose Admin Acetaminophen 650 mg 02/17/19 22:18 Tylenol PO Q4H PRN Pain MILD(1-3)/Fever >100.5/OWENS Divalproex Sodium 500 mg 02/18/19 22:00 02/19/19 09:[address] PO 500 mg BID AUTUMN Administration Enoxaparin Sodium 40 mg 02/18/19 22:00 02/18/19 21:16 Lovenox SUB-Q 40 mg QDAY@2200 AUTUMN Administration Furosemide 20 mg 02/18/19 10:00 02/19/19 09:57 Lasix PO 20 mg QDAY AUTUMN Administration Gabapentin 300 mg 02/17/19 23:00 02/19/19 09:57 Neurontin PO 300 mg BID AUTUMN Administration Hydromorphone HCl 0.5 mg 02/17/19 22:18 Dilaudid IV Q3H PRN Pain , Severe (7-10) Sodium Chloride 1,000 mls @ 75 mls/hr 02/17/19 23:00 02/18/19 21:14 Nacl 0.9% 1000 Ml IV 75 mls/hr DIRECT AUTUMN Administration Levetiracetam 750 mg/ Sodium 107.5 mls @ 400 mls/hr 02/17/19 23:00 02/19/19 10:05 Chloride IV 02/19/19 23:59 400 mls/hr Q12HR AUTUMN Administration Levetiracetam 750 mg 02/20/19 10:00 Keppra PO BID AUTUMN Multivitamins/Minerals 1 each 02/18/19 10:00 02/19/19 09:58 Theragran-M Tab PO 1 each QDAY AUTUMN Administration Ondansetron HCl 4 mg 02/17/19 22:18 Zofran IV Q8H PRN Nausea And Vomiting Oxycodone/Acetaminophen 1 tab 02/17/19 22:18 Percocet 5/325 PO Q6H PRN Pain, Moderate (4-6) Primidone 50 mg 02/17/19 23:00 02/19/19 09:57 Mysoline PO 50 mg BID AUTUMN Administration Sodium Chloride 10 ml 02/18/19 10:00 02/19/19 09:58 Sodium Chloride Flush Syringe 10 Ml IV 10 ml BID AUTUMN Administration Sodium Chloride 10 ml 02/17/19 22:18 Sodium Chloride Flush Syringe 10 Ml IV PRN PRN LINE FLUSH
[2019-02-19] MEDS: LOVENOX SUB-Q SCH (21:14)
--- NOTE | 2019-02-20 08:19 | Discharge Summary ---
Providers - Providers Date of Admission: 02/17/19 15:28 Date of discharge: 02/20/19 Attending physician: JESSI GONSALEZ 02/17/19 22:18 Consult to Physician [CONS] Routine Comment: Consulting Provider: KIKI ROBERTO Physician Instructions: Reason For Exam: seizure disorder 02/18/19 14:32 Physical Therapy Evaluation and Treat [CONS] Routine Comment: Reason For Exam: history of MS and balance difficulty 02/18/19 14:33 Occupational Therapy Evaluate and Treat [CONS] Routine Comment: Reason For Exam: history of MS, clumsy rt. hand Primary care physician: DEV BARRETT Hospitalization Reason for admission: sz, medical noncompliance Condition: Fair Hospital course: 33 year old female with diagnosis of MS and seizure disorder presented with seizures to ED, and an anticonvulsant level that was negligible. She has responded to meds. Apparently has a neurologist on the outside who follows her. Neurology saw the patient in consultation. CT revealed atrophy and areas of decreased attenuation. Neurology attempted calling the patient's mother to obtain more collateral information regarding medications and seizure history. Neurology left messages at 2 phone numbers but no return calls. Etiology of seizures secondary to medical noncompliance. Patient was restarted on Depakote and additionally Keppra. Patient has had no further seizures since administration of medications. Therefore, it is felt that patient has received maximal hospital benefit and was discharged home. Patient was counseled with regards to medication compliance. Dedicated discharge time 32 minutes. Disposition: TO HOME OR SELFCARE Time spent for discharge: 32 - Discharge Diagnoses (1) Status epilepticus Status: Acute (2) Encephalopathy acute Status: Acute (3) Seizure Status: Acute (4) Multiple sclerosis Status: Chronic Core Measure Documentation - Palliative Care Palliative Care/ Comfort Measures: Not Applicable - Core Measures Any of the following diagnoses?: none Exam - Constitutional Vitals: Temp Pulse Resp BP Pulse Ox 98.2 F 64 18 105/57 99 02/20/19 00:00 02/20/19 00:00 02/20/19 00:00 02/20/19 00:00 02/20/19 00:00 General appearance: Present: no acute distress, well-nourished - EENT Eyes: Present: PERRL ENT: hearing intact, clear oral mucosa - Neck Neck: Present: supple, normal ROM - Respiratory Respiratory effort: normal Respiratory: bilateral: CTA - Cardiovascular Heart Sounds: Present: S1 & S2. Absent: rub, click - Extremities Extremities: pulses symmetrical, No edema Peripheral Pulses: within normal limits - Abdominal General gastrointestinal: Present: soft, non-tender, non-distended, normal bowel sounds Female genitourinary: Present: normal - Integumentary Integumentary: Present: clear, warm, dry - Musculoskeletal Musculoskeletal: gait normal, strength equal bilaterally - Psychiatric Psychiatric: appropriate mood/affect, intact judgment & insight - Neurologic Neurologic: CNII-XII intact, moves all extremities Plan Activity: advance as tolerated, no driving until cleared by PCP Weight Bearing Status: Weight Bear as Tolerated Diet: regular Follow up with: DEV BARRETT MD [Primary Care Provider] - 3-5 Days KIKI ROBERTO MD [Staff Physician] - 7 Days Prescriptions: Mv-Min/Folic/Vit K/Lycop/Coq10 [Daily Multivitamin Capsule] 1 each PO DAILY #[address] [Depakote Dr] 500 mg PO BID #60 tablet levETIRAcetam [Keppra TAB] 750 mg PO BID #60 tablet Furosemide [Lasix TAB] 20 mg PO QDAY #30 tablet Primidone [Mysoline] 50 mg PO BID #60 tablet Gabapentin [Neurontin] 300 mg PO BID #60 capsule oxyCODONE /ACETAMINOPHEN [Percocet 5/325 mg] 1 tab PO Q6H PRN #8 tablet PRN Reason: Pain, Moderate (4-6)
[2019-02-20] MEDS: LASIX PO SCH (09:43)
[2019-02-20] MEDS: MYSOLINE PO SCH (09:43)
[2019-02-20] MEDS: SODIUM CHLORIDE FLUSH SYRINGE 10 ML IV SCH (09:44)
[2019-02-20] MEDS: THERAGRAN-M Tab PO SCH (09:44)
[2019-02-20] MEDS: NEURONTIN PO SCH (09:44)
[2019-02-20] MEDS ORDERED: KEPPRA PO SCH (10:00)
[2019-02-20 11:01] VITALS: BP 99/37
== END 2019-02-20 23:45 | disposition home or self-care (01) | DRG 101 ==
LOC: ED 12:28 → 4A 15:28
PROVIDERS: ADMIT Internal Medicine; ATTEND Hospitalist
DX: G40.901 Epilepsy, unspecified, not intractable, with status epilepticus (principal); G35 Multiple sclerosis; Z82.49 Family history of ischemic heart disease and other diseases of the circulatory system; Z91.19 Patient's noncompliance with other medical treatment and regimen; Z71.89 Other specified counseling
CPT/HCPCS: 36415; 70450; 80053; 80164; 83036; 83735; 84703; 85025; G0378; J1650; J1953; J7030

== ENCOUNTER 2021-07-10 12:01 | Emergency (ER) | payer MEDICARE ==
[2021-07-10 13:57] VITALS: BP 117/61
== END 2021-07-10 18:22 | disposition left against medical advice (07) ==
LOC: ED 12:01
DX: R22.43 Localized swelling, mass and lump, lower limb, bilateral (principal); Z53.21 Procedure and treatment not carried out due to patient leaving prior to being seen by health care provider

== ENCOUNTER 2021-08-01 13:34 | Inpatient (IN) | payer MEDICARE, OTHER ==
[2021-08-01] MEDS ORDERED: ACETAMINOPHEN 325 MG TAB PO ONE (18:17)
--- NOTE | 2021-08-01 18:19 | Event Note ---
ED Screening Note ED Screening Note: She has a past medical history of seizures, MS She presents for body aches, chills, fever States she has not been able to urinate since 11 AM this morning She states that she has bilateral lower extremity edema fever and tachycardia This initial assessment/diagnostic orders/clinical plan/treatment(s) is/are subject to change based on patients health status, clinical progression and re- assessment by fellow clinical providers in the ED. Further treatment and workup at subsequent clinical providers discretion. Patient/guardian urged not to elope from the ED as their condition may be serious if not clinically assessed and managed. Initial orders include: Code sepsis initiated
--- NOTE | 2021-08-01 19:12 | XRay Report ---
CHEST 1 VIEW 08/01/2021 6:03 PM INDICATION / CLINICAL INFORMATION: suspected sepsis. COMPARISON: 10/04/18 FINDINGS: SUPPORT DEVICES: None. HEART / MEDIASTINUM: No significant abnormality. LUNGS / PLEURA: No significant pulmonary or pleural abnormality. No pneumothorax. ADDITIONAL FINDINGS: No significant additional findings. IMPRESSION: 1. No acute findings. Signer Name: Miko Schaeffer MD Signed: 08/01/2021 7:08 PM Workstation Name: [id number]
[2021-08-01 19:19] LABS: Hemoglobin 13.4 gm/dl (10.1-14.3); Mean Corpuscular HGB Conc 33 % (30-34); Mean Corpuscular Volume 85 fl (79-97); Platelet Count 225 K/mm3 (140-440); Red Blood Count 4.85 M/mm3 (3.65-5.03); Red Cell Distribution Width 12.9 % (13.2-15.2)
[2021-08-01 19:43] LABS: Hemolysis Index 180
[2021-08-01] MEDS ORDERED: SODIUM CHLORIDE 0.9% 1000 ML 1,000 ML IV ONE (19:44)
--- NOTE | 2021-08-01 19:44 | Emergency Department Report ---
ED General Adult HPI - General Chief complaint: Urogenital-Female Stated complaint: ALL OVER PAIN,FEET /ANKLE SWOLLEN Time Seen by Provider: 08/01/21 18:16 Source: patient Mode of arrival: Wheelchair Limitations: No Limitations - History of Present Illness Initial comments: Patient is 36 years old female with history of multiple sclerosis and seizure. Patient brought to the emergency room in a wheelchair by her mother for evaluation of fever, chills and unable to urinate since this morning. Patient stated that she became more weak and she is unable to move for the last few days. Patient stated that she usually walk with a walker. Patient also stated that she has been having some runny nose, cough and congestion. Patient is not vaccinated against COVID-19. Patient denied any headache, focal weakness numbness or tingling sensation. No chest pain. No shortness of breath. - Related Data Previous Rx's Medication Instructions Recorded Last Taken Type Divalproex Dr [Depakote Dr] 500 mg PO BID #60 tablet 02/20/19 Unknown Rx Furosemide [Lasix TAB] 20 mg PO QDAY #30 tablet 02/20/19 Unknown Rx Gabapentin 300 mg PO BID #60 capsule 02/20/19 Unknown Rx Mv-Min/Folic/Vit K/Lycop/Coq10 1 each PO DAILY #30 capsule 02/20/19 Unknown Rx [Daily Multivitamin Capsule] Primidone [Mysoline] 50 mg PO BID #60 tablet 02/20/19 Unknown Rx levETIRAcetam [Keppra TAB] 750 mg PO BID #60 tablet 02/20/19 Unknown Rx oxyCODONE /ACETAMINOPHEN [Percocet 1 tab PO Q6H PRN #8 tablet 02/20/19 Unknown Rx 5/325 mg] Allergies Allergy/AdvReac Type Severity Reaction Status Date / Time No Known Allergies Allergy Verified 07/10/21 13:58 ED Review of Systems ROS: Stated complaint: ALL OVER PAIN,FEET /ANKLE SWOLLEN Other details as noted in HPI Comment: All other systems reviewed and negative Constitutional: chills, fever Respiratory: cough. denies: shortness of breath, SOB with exertion, SOB at rest, wheezing Cardiovascular: palpitations. denies: chest pain Gastrointestinal: denies: abdominal pain, nausea, vomiting, diarrhea, constipation, hematemesis, melena, hematochezia Musculoskeletal: denies: back pain Neurological: weakness. denies: headache, numbness, paresthesias, confusion ED Past Medical Hx - Past Medical History Previous Medical History?: Yes Hx Seizures: Yes Additional medical history: MS - Surgical History Past Surgical History?: No - Social History Smoking Status: Never Smoker - Medications Home Medications: Home Medications Medication Instructions Recorded Confirmed Last Taken Type Divalproex Dr [Depakote Dr] 500 mg PO BID #60 tablet 02/20/19 Unknown Rx Furosemide [Lasix TAB] 20 mg PO QDAY #30 tablet 02/20/19 Unknown Rx Gabapentin 300 mg PO BID #60 capsule 02/20/19 Unknown Rx Mv-Min/Folic/Vit K/Lycop/Coq10 1 each PO DAILY #30 capsule 02/20/19 Unknown Rx [Daily Multivitamin Capsule] Primidone [Mysoline] 50 mg PO BID #60 tablet 02/20/19 Unknown Rx levETIRAcetam [Keppra TAB] 750 mg PO BID #60 tablet 02/20/19 Unknown Rx oxyCODONE /ACETAMINOPHEN [Percocet 1 tab PO Q6H PRN #8 tablet 02/20/19 Unknown Rx 5/325 mg] ED Physical Exam - General Limitations: No Limitations General appearance: alert, in no apparent distress, other (Patient is in a wheelchair.) - Head Head exam: Present: atraumatic, normocephalic, normal inspection - Eye Eye exam: Present: normal appearance, PERRL - ENT ENT exam: Present: mucous membranes dry - Neck Neck exam: Present: normal inspection, full ROM. Absent: tenderness, meningismus - Respiratory Respiratory exam: Present: normal lung sounds bilaterally - Cardiovascular Cardiovascular Exam: Present: tachycardia - GI/Abdominal GI/Abdominal exam: Present: soft, normal bowel sounds. Absent: distended, tenderness, guarding, rebound, rigid, organomegaly, mass, bruit, pulsatile mass, hernia - Extremities Exam Extremities exam: Present: pedal edema. Absent: calf tenderness - Back Exam Back exam: Present: normal inspection, full ROM. Absent: CVA tenderness (R), CVA tenderness (L) - Neurological Exam Neurological exam: Present: alert, oriented X3, CN II-XII intact, abnormal gait, motor sensory deficit (Chronic bilateral lower extremity weakness.) - Psychiatric Psychiatric exam: Present: normal mood - Skin Skin exam: Present: warm, intact, normal color ED Course Vital Signs 08/01/21 14:13 Temperature 100.6 F H Pulse Rate 111 H Respiratory 18 Rate Blood Pressure 141/75 O2 Sat by Pulse 100 Oximetry ED Medical Decision Making - Lab Data Result diagrams: 08/01/21 18:44 08/01/21 19:46 - Radiology Data Radiology results: report reviewed - Medical Decision Making Patient is 36 years old female with history of multiple sclerosis and seizure. Patient brought to the emergency room in a wheelchair by her mother for evaluation of fever, chills and unable to urinate since this morning. Patient stated that she became more weak and she is unable to move for the last few days. Patient stated that she usually walk with a walker. Patient also stated that she has been having some runny nose, cough and congestion. Patient is not vaccinated against COVID-19. Patient denied any headache, focal weakness numbness or tingling sensation. No chest pain. No shortness of breath. Patient symptoms she is going well with MS exacerbation. Patient received Solu- Medrol 500 mg IV x1. Labs reviewed and is unremarkable however urine is still pending. Morgan catheter order placed. I discussed the patient with Dr. Carmona, he agreed to admit the patient to medical service for further management. Critical care attestation.: If time is entered above; I have spent that time in minutes in the direct care of this critically ill patient, excluding procedure time. ED Disposition Clinical Impression: Multiple sclerosis exacerbation, Suspected COVID-19 virus infection Disposition: ADMITTED INPATIENT Is pt being admited?: Yes Condition: Stable Referrals: PRIMARY CARE, [Primary Care Provider] - 3-5 Days
[2021-08-01 19:59] LABS: BUN/Creatinine Ratio TNR; Blood Urea Nitrogen TNR mg/dL (7-17)
[2021-08-01 20:00] LABS: Alanine Aminotransferase TNR units/L (7-56); Albumin TNR g/dL (3.9-5); Calcium TNR mg/dL (8.4-10.2)
[2021-08-01] MEDS ORDERED: methylPREDNISolone Sod Suc 500 MG in SODIUM CHLORIDE 0.9% 100 ML IV ONE (20:00)
[2021-08-01 20:15] LABS: RBC Morphology Normal; Total Cells Counted 100
[2021-08-01 20:23] LABS: Alanine Aminotransferase 31 units/L (7-56); Albumin 4.1 g/dL (3.9-5); Blood Urea Nitrogen 8 mg/dL (7-17); Calcium 8.6 mg/dL (8.4-10.2); Hemolysis Index 9
[2021-08-01 20:25] LABS: BUN/Creatinine Ratio 20; Bilirubin,Direct < 0.2 mg/dL (0-0.2)
[2021-08-01 22:50] LABS: Bilirubin,Urine NEG (Negative); Blood,Urine NEG (Negative); Color,Urine Yellow (Yellow); Mucus,Urine FEW /HPF; Protein,Urine <15 mg/dL mg/dL (Negative); RBC,Urine < 1.0 /HPF (0.0-6.0)
[2021-08-01] MEDS ORDERED: ONDANSETRON 4 MG/2 ML INJ IV PRN (23:20)
[2021-08-01] MEDS ORDERED: ACETAMINOPHEN 325 MG TAB PO PRN (23:20)
[2021-08-01] MEDS ORDERED: MORPHINE 4 MG/1 ML INJ IV PRN (23:20)
[2021-08-01] MEDS ORDERED: MAGNESIUM HYDROXIDE (MOM) ORAL LIQD UDC PO PRN (23:20)
[2021-08-01] MEDS ORDERED: MORPHINE 2 MG/1 ML INJ IV PRN (23:20)
--- NOTE | 2021-08-01 23:36 | History and Physical Report ---
History of Present Illness Date of examination: 08/01/21 Date of admission: 08/01/21 22:27 Chief complaint: Fever and Chills Inability to urinate History of present illness: 36-year-old -Turkish female with known history of seizures multiple sclerosis brought into the emergency room today accompanied by mother complaining of fever, chills and inability to urinate since this morning. She is normally ambulates with a wheelchair but has gotten a week over the past few days. Patient denies any nausea vomiting, no abdominal pain, no diarrhea, no hematuria or dysuria. No headache or dizziness. She however indicates that she has been having some cough congestion with runny nose. She denies any recent travel and no sick contacts. Patient denies any contact with anyone with COVID-19. Patient has not been vaccinated against COVID-19. Work-up in the emergency room today has not shown any significant findings. Patient is being admitted for possible multiple sclerosis exacerbation. She has been started on IV steroids. She will also be ruled out for possible COVID-19. Past History Past Medical History: seizures, other (Multiple Sclerosis) Past Surgical History: No surgical history Social history: no significant social history Family history: no significant family history Medications and Allergies Allergies Allergy/AdvReac Type Severity Reaction Status Date / Time No Known Allergies Allergy Verified 07/10/21 13:58 Home Medications Medication Instructions Recorded Confirmed Last Taken Type Divalproex [Mary Beth Galeana] 500 mg PO BID #60 tablet 02/20/19 Unknown Rx Furosemide [Lasix TAB] 20 mg PO QDAY #30 tablet 02/20/19 Unknown Rx Gabapentin 300 mg PO BID #60 capsule 02/20/19 Unknown Rx Mv-Min/Folic/Vit K/Lycop/Coq10 1 each PO DAILY #30 capsule 02/20/19 Unknown Rx [Daily Multivitamin Capsule] Primidone [Mysoline] 50 mg PO BID #60 tablet 02/20/19 Unknown Rx levETIRAcetam [Keppra TAB] 750 mg PO BID #60 tablet 02/20/19 Unknown Rx oxyCODONE /ACETAMINOPHEN [Percocet 1 tab PO Q6H PRN #8 tablet 02/20/19 Unknown Rx 5/325 mg] Active Meds: Active Medications Acetaminophen (Acetaminophen 325 Mg Tab) 650 mg PO Q4H PRN PRN Reason: Pain MILD(1-3)/Fever >100.5/OWENS Heparin Sodium (Porcine) (Heparin 5,000 Unit/1 Ml Vial) 5,000 unit SUB-Q Q8HR AUTUMN Sodium Chloride (Nacl 0.9% 1000 Ml) 1,000 mls @ 125 mls/hr IV ONCE ONE Stop: 08/02/21 03:43 Last Admin: 08/01/21 21:01 Dose: 125 mls/hr Documented by: Sodium Chloride (Nacl 0.9% 1000 Ml) 1,000 mls @ 75 mls/hr IV DIRECT AUTUMN Magnesium Hydroxide (Magnesium Hydroxide (Mom) Oral Liqd Udc) 30 ml PO Q4H PRN PRN Reason: Constipation Morphine Sulfate (Morphine 2 Mg/1 Ml Inj) 2 mg IV Q4H PRN PRN Reason: Pain, Moderate (4-6) Morphine Sulfate (Morphine 4 Mg/1 Ml Inj) 4 mg IV Q4H PRN PRN Reason: Pain , Severe (7-10) Ondansetron HCl (Ondansetron 4 Mg/2 Ml Inj) 4 mg IV Q8H PRN PRN Reason: Nausea And Vomiting Sodium Chloride (Sodium Chloride 0.9% 10 Ml Flush Syringe) 10 ml IV BID AUTUMN Sodium Chloride (Sodium Chloride 0.9% 10 Ml Flush Syringe) 10 ml IV PRN PRN PRN Reason: LINE FLUSH Review of Systems Constitutional: fever, chills Ears, nose, mouth and throat: no nasal congestion, no sore throat Cardiovascular: no chest pain, no palpitations Respiratory: no cough, no shortness of breath Gastrointestinal: no abdominal pain, no nausea, no vomiting, no diarrhea Musculoskeletal: no neck pain, no low back pain Integumentary: no rash, no pruritis Neurological: no seizures, no headaches, no confusion Psychiatric: no anxiety, no depression Endocrine: no polydipsia, no polyuria, no nocturia Exam - Constitutional Vitals: Temp Pulse Resp BP Pulse Ox 100.6 F H 111 H 18 141/75 100 08/01/21 14:13 08/01/21 14:13 08/01/21 14:13 08/01/21 14:13 08/01/21 14:13 General appearance: Present: no acute distress, well-nourished - EENT Eyes: Present: PERRL, EOM intact. Absent: scleral icterus ENT: hearing intact, clear oral mucosa, dentition normal - Neck Neck: Present: supple, normal ROM - Respiratory Respiratory effort: normal Respiratory: bilateral: CTA - Extremities Extremities: no ischemia, pulses intact, pulses symmetrical, normal temperature, normal color, Full ROM Extremity abnormal: edema (Trace bilateral ankle edema.) Peripheral Pulses: within normal limits - Abdominal General gastrointestinal: Present: soft, non-tender, non-distended, normal bowel sounds. Absent: mass - Integumentary Integumentary: Present: clear, warm, dry, normal turgor. Absent: rash - Musculoskeletal Musculoskeletal: strength equal bilaterally - Psychiatric Psychiatric: appropriate mood/affect, intact judgment & insight, memory intact, cooperative - Neurologic Neurologic: CNII-XII intact, focal deficits, moves all extremities Results - Labs CBC & Chem 7: 08/01/21 18:44 08/01/21 19:46 Labs: Abnormal lab results 08/01/21 08/01/21 Range/Units 18:44 19:46 WBC 2.9 L (4.5-11.0) K/mm3 RDW 12.9 L (13.2-15.2) % Monocytes % (Manual) 24.0 H (0.0-7.3) % Seg Neutrophils # Man 1.2 L (1.8-7.7) K/mm3 Lymphocytes # (Manual) 1.0 L (1.2-5.4) K/mm3 Sodium 135 L (137-145) mmol/L Creatinine 0.4 L (0.6-1.2) mg/dL AST 52 H (5-40) units/L Assessment and Plan - Patient Problems (1) Multiple sclerosis exacerbation Current Visit: Yes Status: Acute Plan to address problem: Patient started on IV steroids. We will request neurology evaluation and recommendations. (2) Seizure Current Visit: No Status: Acute Plan to address problem: Patient will be placed on seizure precautions. We will resume routine home medications once reconciled. (3) Suspected COVID-19 virus infection Current Visit: Yes Status: Acute Plan to address problem: Will await COVID-19 testing. (4) DVT prophylaxis Current Visit: No Status: Acute Plan to address problem: Patient placed on subcutaneous heparin. (5) Full code status Current Visit: Yes Status: Acute Plan to address problem: Patient is full code.
[2021-08-02 05:07] LABS: Basophils % (Auto) 0.4 % (0.0-1.8); Hematocrit 38.8 % (30.3-42.9); Hemoglobin 12.7 gm/dl (10.1-14.3); Lymphocytes # (Auto) 0.4 K/mm3 (1.2-5.4); Lymphocytes % (Auto) 15.8 % (13.4-35.0); Mean Corpuscular HGB Conc 33 % (30-34); Mean Corpuscular Volume 84 fl (79-97); Monocytes # (Auto) 0.1 K/mm3 (0.0-0.8); Monocytes % (Auto) 4.5 % (0.0-7.3); Platelet Count 209 K/mm3 (140-440); Red Blood Count 4.64 M/mm3 (3.65-5.03); Red Cell Distribution Width 12.4 % (13.2-15.2)
[2021-08-02 05:17] LABS: INR 0.94 (0.87-1.13)
[2021-08-02 05:29] LABS: Blood Urea Nitrogen 6 mg/dL (7-17); Calcium 8.4 mg/dL (8.4-10.2); Hemolysis Index 6
[2021-08-02 05:31] LABS: BUN/Creatinine Ratio 15
[2021-08-02] MEDS: HEPARIN 5,000 UNIT/1 ML VIAL SUB-Q SCH ×3 (06:44→21:35)
[2021-08-02] MEDS ORDERED: NON-FORMULARY EACH (Levetiracetam [Keppra Tab] 750 MG Tablet) PO SCH (10:00)
[2021-08-02] MEDS: levETIRAcetam 500 MG/5 ML ORAL LIQD PO SCH ×2 (12:07→21:35)
[2021-08-02] MEDS: GABAPENTIN 300 MG CAP PO SCH ×2 (12:09→21:35)
[2021-08-02] MEDS: DIVALPROEX DR 500 MG TAB PO SCH ×2 (12:09→21:35)
[2021-08-02] MEDS: SODIUM CHLORIDE 0.9% 1000 ML 1,000 ML IV SCH (12:23)
--- NOTE | 2021-08-02 13:10 | Progress Note ---
Assessment and Plan -- Multiple sclerosis exacerbation Patient started on IV steroids. requested neurology evaluation and recommendations. -- Seizure disorder placed on seizure precautions. Continue home medication Keppra twice daily -- Suspected COVID-19 virus infection Will await COVID-19 testing. Continue Covid protocol for now --Urinary retention, Morgan in place -- DVT prophylaxis Patient placed on subcutaneous heparin. -- Full code status. Daily clinical course: 08/02/21; pending neuro eval, continue supportive care. Covid test is pending, continue dexamethasone for now. Patient resting on room air. Placed on Morgan catheter for urinary retention. Subjective Date of service: 08/02/21 Interval history: Patient seen and examined. Medical records and medication list reviewed. No acute event overnight noted by the RN. Patient resting on room air. Patient is tolerating diet. Complains of unable to move her lower extremity and right side Discussed plan of care at bedside with patient. Objective - Exam Narrative Exam: GENERAL: well-developed and well-nourished -E[place]ian female lying on bed appeared to be in no discomfort. HEENT: Normocephalic. Atraumatic. No conjunctival congestion or icterus. Patient has moist mucous membranes. NECK: Supple. Trachea midline. CHEST/LUNGS: Clear to auscultated bilaterally, breathing nonlabored. No wheezes crackles or rhonchi. HEART/CARDIOVASCULAR: Regular in rate and rhythm. S1 and S2 positive. ABDOMEN: Abdomen is soft, nontender. Patient has normal bowel sounds. SKIN: There is no rash. Warm and dry. NEURO: Paraplegic with right-sided weakness, AAOx3 MUSCULOSKELETAL: No joint effusion or tenderness. EXTRIMITY: No edema, no cyanosis or clubbing. PSYCH: Cooperative. - Constitutional Vitals: Vital Signs - 12hr 08/02/21 08/02/21 08/02/21 03:16 03:24 03:30 Temperature 98.5 F Pulse Rate 99 H 95 H Respiratory 16 14 Rate Blood Pressure Blood Pressure 111/70 [Left] O2 Sat by Pulse 99 99 Oximetry 08/02/21 08/02/21 08/02/21 03:46 04:00 04:16 Temperature Pulse Rate 101 H 92 H 95 H Respiratory 14 18 19 Rate Blood Pressure 118/64 118/64 Blood Pressure [Left] O2 Sat by Pulse 98 98 98 Oximetry 08/02/21 08/02/21 08/02/21 04:30 04:46 05:00 Temperature Pulse Rate 99 H 97 H 95 H Respiratory 20 14 17 Rate Blood Pressure 106/50 106/50 117/69 Blood Pressure [Left] O2 Sat by Pulse 99 98 100 Oximetry 08/02/21 08/02/21 08/02/21 05:16 05:30 05:46 Temperature Pulse Rate 92 H 98 H 92 H Respiratory 17 15 17 Rate Blood Pressure 117/69 116/68 116/68 Blood Pressure [Left] O2 Sat by Pulse 98 97 98 Oximetry 08/02/21 08/02/21 08/02/21 06:00 06:16 06:30 Temperature Pulse Rate 93 H 96 H 98 H Respiratory 17 19 21 Rate Blood Pressure 114/65 114/65 119/69 Blood Pressure [Left] O2 Sat by Pulse 98 99 98 Oximetry 08/02/21 08/02/21 08/02/21 06:46 07:00 07:16 Temperature Pulse Rate 104 H 92 H 93 H Respiratory 15 11 L 17 Rate Blood Pressure 119/69 119/69 119/69 Blood Pressure [Left] O2 Sat by Pulse 98 98 98 Oximetry 08/02/21 08/02/21 08/02/21 07:30 07:40 07:46 Temperature Pulse Rate 94 H 90 Respiratory 19 18 Rate Blood Pressure 111/65 111/65 Blood Pressure [Left] O2 Sat by Pulse 97 97 98 Oximetry 08/02/21 08/02/21 08:00 08:35 Temperature 99.6 F Pulse Rate 97 H Respiratory 26 H Rate Blood Pressure 103/60 Blood Pressure [Left] O2 Sat by Pulse 97 Oximetry - Labs CBC & Chem 7: 08/02/21 04:36 08/02/21 04:36 Labs: Abnormal lab results 08/01/21 08/01/21 08/02/21 Range/Units 18:44 19:46 04:36 WBC 2.9 L 2.8 L (4.5-11.0) K/mm3 RDW 12.9 L 12.4 L (13.2-15.2) % Lymph # (Auto) 0.4 L (1.2-5.4) K/mm3 Seg Neutrophils % 79.3 H (40.0-70.0) % Monocytes % (Manual) 24.0 H (0.0-7.3) % Seg Neutrophils # Man 1.2 L (1.8-7.7) K/mm3 Lymphocytes # (Manual) 1.0 L (1.2-5.4) K/mm3 Sodium 135 L (137-145) mmol/L BUN (7-17) mg/dL Creatinine 0.4 L (0.6-1.2) mg/dL Glucose (65-100) mg/dL AST 52 H (5-40) units/L 08/02/21 Range/Units 04:36 WBC (4.5-11.0) K/mm3 RDW (13.2-15.2) % Lymph # (Auto) (1.2-5.4) K/mm3 Seg Neutrophils % (40.0-70.0) % Monocytes % (Manual) (0.0-7.3) % Seg Neutrophils # Man (1.8-7.7) K/mm3 Lymphocytes # (Manual) (1.2-5.4) K/mm3 Sodium (137-145) mmol/L BUN 6 L (7-17) mg/dL Creatinine 0.4 L (0.6-1.2) mg/dL Glucose 153 H (65-100) mg/dL AST (5-40) units/L
[2021-08-02] MEDS: methylPREDNISolone Sod Suc 1,000 MG in SODIUM CHLORIDE 0.9% 250ML 250 ML IV SCH (14:20)
[2021-08-02] MEDS: PRIMIDONE 50 MG TAB PO SCH ×2 (14:20→21:35)
--- NOTE | 2021-08-02 22:46 | Consultation ---
History of Present Illness Consult date: 08/02/21 Reason for Consult: MS Chief complaint: fever, weakness, urinary retention History of present illness: 36 yo female with MS, seizure d/o, fever, chills , and urinary retention since the day of admission. Noted with progressive weakness over the last few days. Past History Past Medical History: seizures, other (Multiple Sclerosis) Past Surgical History: No surgical history Social history: no significant social history Family history: no significant family history Medications and Allergies Allergies Allergy/AdvReac Type Severity Reaction Status Date / Time No Known Allergies Allergy Verified 07/10/21 13:58 Home Medications Medication Instructions Recorded Confirmed Last Taken Type Divalproex Dr [Depakote Dr] 500 mg PO BID #60 tablet 02/20/19 Unknown Rx Furosemide [Lasix TAB] 20 mg PO QDAY #30 tablet 02/20/19 Unknown Rx Gabapentin 300 mg PO BID #60 capsule 02/20/19 Unknown Rx Mv-Min/Folic/Vit K/Lycop/Coq10 1 each PO DAILY #30 capsule 02/20/19 Unknown Rx [Daily Multivitamin Capsule] Primidone [Mysoline] 50 mg PO BID #60 tablet 02/20/19 Unknown Rx levETIRAcetam [Keppra TAB] 750 mg PO BID #60 tablet 02/20/19 Unknown Rx oxyCODONE /ACETAMINOPHEN [Percocet 1 tab PO Q6H PRN #8 tablet 02/20/19 Unknown Rx 5/325 mg] Active Meds: Active Medications Acetaminophen (Acetaminophen 325 Mg Tab) 650 mg PO Q4H PRN PRN Reason: Pain MILD(1-3)/Fever >100.5/[facility] Divalproex Sodium (Divalproex Dr 500 Mg Tab) 500 mg PO BID [facility] Last Admin: 08/02/21 21:35 Dose: 500 mg Documented by: Gabapentin (Gabapentin 300 Mg Cap) 300 mg PO BID [facility] Last Admin: 08/02/21 21:35 Dose: 300 mg Documented by: Heparin Sodium (Porcine) (Heparin 5,000 Unit/1 Ml Vial) 5,000 unit SUB-Q Q8HR [facility] Last Admin: 08/02/21 21:35 Dose: 5,000 unit Documented by: Sodium Chloride (Nacl 0.9% 1000 Ml) 1,000 mls @ 75 mls/hr IV DIRECT [facility] Last Admin: 08/02/21 12:23 Dose: 75 mls/hr Documented by: Methylprednisolone Sodium Succinate 1,000 mg/ Sodium Chloride 250 mls @ 250 mls/hr IV Q24HR [facility] Last Infusion: 08/02/21 20:51 Dose: Infused Documented by: Levetiracetam (Levetiracetam 500 Mg/5 Ml Oral Liqd) 750 mg PO BID [facility] Last Admin: 08/02/21 21:35 Dose: 750 mg Documented by: Magnesium Hydroxide (Magnesium Hydroxide (Mom) Oral Liqd Udc) 30 ml PO Q4H PRN PRN Reason: Constipation Morphine Sulfate (Morphine 2 Mg/1 Ml Inj) 2 mg IV Q4H PRN PRN Reason: Pain, Moderate (4-6) Morphine Sulfate (Morphine 4 Mg/1 Ml Inj) 4 mg IV Q4H PRN PRN Reason: Pain , Severe (7-10) Ondansetron HCl (Ondansetron 4 Mg/2 Ml Inj) 4 mg IV Q8H PRN PRN Reason: Nausea And Vomiting Primidone (Primidone 50 Mg Tab) 50 mg PO BID [facility] Last Admin: 08/02/21 21:35 Dose: 50 mg Documented by: Sodium Chloride (Sodium Chloride 0.9% 10 Ml Flush Syringe) 10 ml IV BID [facility] Last Admin: 08/02/21 12:09 Dose: 10 ml Documented by: Sodium Chloride (Sodium Chloride 0.9% 10 Ml Flush Syringe) 10 ml IV PRN PRN PRN Reason: LINE FLUSH Physical Examination - Vital Signs Vital Signs: Vital Signs Temp Pulse Resp BP Pulse Ox 100.6 F H 111 H 18 141/75 100 08/01/21 14:13 08/01/21 14:13 08/01/21 14:13 08/01/21 14:13 08/01/21 14:13 - Physical Exam Narrative exam: Televideo not available today. Results - Laboratory Findings CBC and BMP: 08/02/21 04:36 08/02/21 04:36 Abnormal Lab Findings: Abnormal Labs 08/01/21 08/01/21 08/02/21 18:44 19:46 04:36 WBC 2.9 L 2.8 L RDW 12.9 L 12.4 L Lymph # (Auto) 0.4 L Seg Neutrophils % 79.3 H Monocytes % (Manual) 24.0 H Seg Neutrophils # Man 1.2 L Lymphocytes # (Manual) 1.0 L Sodium 135 L BUN Creatinine 0.4 L Glucose AST 52 H Coronavirus (PCR) 08/02/21 08/02/21 04:36 08:38 WBC RDW Lymph # (Auto) Seg Neutrophils % Monocytes % (Manual) Seg Neutrophils # Man Lymphocytes # (Manual) Sodium BUN 6 L Creatinine 0.4 L Glucose 153 H AST Coronavirus (PCR) Positive A Assessment and Plan 36 yo female with MS, seizure d/o, fever, chills , and urinary retention since the day of admission. Noted with progressive weakness over the last few days. 1. MS Exacerbation - solumedrol 250 mg iv q6, followed by prednison taper with prednosone 60 mg qd s/p iv solumedrol and then 10 mg per day dose reduction every other day; recommend mri brain, cervical, thoracic spine w/ wo contrast (when clinically stable) to confirm any evidence of contrast enhancement for an acute MS exacerbation and thereby effectiveness of steroid treatment (if no contrast enhancement, discontinue steroid treatment); otherwise concern for "recrudescence" of old MS symptoms in the setting of underlying infection; aggressive treatment of underlying infection per primary team. 2. Generalized Weaknss - pt/ot evaluation/monitoring. 3. Urinary retention - risk of uti; per primary team. 4. COVID+ - per felisha arceo. Eliezer Mc MD Neurology
[2021-08-03] MEDS: SODIUM CHLORIDE 0.9% 1000 ML 1,000 ML IV SCH ×2 (00:26→23:30)
[2021-08-03] MEDS: HEPARIN 5,000 UNIT/1 ML VIAL SUB-Q SCH ×3 (05:55→23:31)
[2021-08-03] MEDS: levETIRAcetam 500 MG/5 ML ORAL LIQD PO SCH ×2 (11:42→23:31)
[2021-08-03] MEDS: PRIMIDONE 50 MG TAB PO SCH ×2 (11:43→23:31)
[2021-08-03] MEDS: DIVALPROEX DR 500 MG TAB PO SCH ×2 (11:44→23:31)
[2021-08-03] MEDS: methylPREDNISolone Sod Suc 1,000 MG in SODIUM CHLORIDE 0.9% 250ML 250 ML IV SCH (11:44)
[2021-08-03] MEDS: GABAPENTIN 300 MG CAP PO SCH ×2 (11:44→23:31)
[2021-08-03] MEDS ORDERED: oxyCODONE /ACETAMINOPHEN 5-325MG TAB PO PRN (14:50)
--- NOTE | 2021-08-03 14:50 | Progress Note ---
Assessment and Plan -- Multiple sclerosis exacerbation Patient started on IV steroids. requested neurology evaluation and recommendations. Neurology recommended tapering dose of IV steroid -- Seizure disorder placed on seizure precautions. Continue home medication Keppra twice daily -- COVID-19 virus infection patient resting in room air and positive for COVID-19. Continue Covid protocol for now, as patient on RA, no need for remdesivir. --Urinary retention, Morgan in place -- DVT prophylaxis Patient placed on subcutaneous heparin. -- Full code status. Daily clinical course: 08/02/21; pending neuro eval, continue supportive care. Covid test is pending, continue dexamethasone for now. Patient resting on room air. Placed on Morgan catheter for urinary retention. 08/03/21: Neurology recommended tapering dose of IV steroid, patient resting in room air and positive for COVID-19. Continue to follow clinically. Plan for MRI of brain cervical lumbar and thoracic spine with and without contrast when clinically more stable. ID consult Subjective Date of service: 08/03/21 Interval history: Patient seen and examined. Medical records and medication list reviewed. No acute event overnight noted by the RN. Patient resting on room air. Patient is tolerating diet. Complains of unable to move her lower extremity and right side Discussed plan of care at bedside with patient. Objective - Exam Narrative Exam: GENERAL: well-developed and well-nourished -[place]ijani female lying on bed appeared to be in no discomfort. HEENT: Normocephalic. Atraumatic. No conjunctival congestion or icterus. Patient has moist mucous membranes. NECK: Supple. Trachea midline. CHEST/LUNGS: Clear to auscultated bilaterally, breathing nonlabored. No wheezes crackles or rhonchi. HEART/CARDIOVASCULAR: Regular in rate and rhythm. S1 and S2 positive. ABDOMEN: Abdomen is soft, nontender. Patient has normal bowel sounds. SKIN: There is no rash. Warm and dry. NEURO: Paraplegic with right-sided weakness, AAOx3 MUSCULOSKELETAL: No joint effusion or tenderness. EXTRIMITY: No edema, no cyanosis or clubbing. PSYCH: Cooperative. - Constitutional Vitals: Vital Signs - 12hr 08/03/21 08/03/21 08/03/21 04:34 05:00 11:20 Temperature 98.4 F 98.2 F Pulse Rate 78 Respiratory 16 18 Rate Blood Pressure 126/69 129/64 O2 Sat by Pulse 97 99 Oximetry - Labs CBC & Chem 7: 08/02/21 04:36 08/02/21 04:36 Labs: Abnormal lab results 08/02/21 Range/Units 08:38 Coronavirus (PCR) Positive A (Negative)
[2021-08-04] MEDS ORDERED: SENNOSIDES 8.6 MG TAB PO PRN (01:49)
[2021-08-04] MEDS ORDERED: POLYETHYLENE GLYCOL 3350 17 GM POWDER PO ONE (02:56)
[2021-08-04] MEDS: HEPARIN 5,000 UNIT/1 ML VIAL SUB-Q SCH ×3 (05:34→21:29)
[2021-08-04] MEDS ORDERED: LYCOP PO SCH (10:00)
[2021-08-04] MEDS ORDERED: COQ10 PO SCH (10:00)
[2021-08-04] MEDS ORDERED: [UNRECOGNIZED DRUG - OTHER] PO SCH (10:00)
[2021-08-04] MEDS ORDERED: FOLIC PO SCH (10:00)
[2021-08-04] MEDS ORDERED: VIT K PO SCH (10:00)
[2021-08-04] MEDS ORDERED: MV MIN PO SCH (10:00)
[2021-08-04] MEDS: GABAPENTIN 300 MG CAP PO SCH ×2 (10:08→21:29)
[2021-08-04] MEDS: MULTIVITAMINS,THER W-MINERALS TAB PO SCH (10:08)
[2021-08-04] MEDS: SODIUM CHLORIDE 0.9% IV SCH ×3 (10:08→19:17)
[2021-08-04] MEDS: levETIRAcetam 500 MG/5 ML ORAL LIQD PO SCH ×2 (10:08→21:29)
[2021-08-04] MEDS: METHYLPREDNISOLONE SOD SUC IV SCH ×3 (10:08→19:17)
[2021-08-04] MEDS: PRIMIDONE 50 MG TAB PO SCH ×2 (10:09→21:29)
[2021-08-04] MEDS: DIVALPROEX DR 500 MG TAB PO SCH ×2 (10:09→21:29)
--- NOTE | 2021-08-04 13:49 | Progress Note ---
Assessment and Plan Cultures: Blood culture no growth today SARS CoV2 PCR positive Assessment: 36-year-old female with history of seizures, multiple sclerosis, admitted on secondary to 24-hour history of fever, chills, inability to urinate associated with generalized weakness, cough congestion runny nose: #Sepsis: With fever, tachycardia, neutropenia; likely secondary to COVID-19 infection #COVID-19 infection: Chest x-ray with no obvious consolidations.. Infllammatory markers pending. Patient is not hypoxic. Currently on room air. #AMS: With possible exacerbation. Neurology on board. Recommendations: -Continue steroids per IMS for MS exacerbation -No indication for remdesivir as patient is not hypoxic, currently on room air -Monitor inflammatory markers - ferritin, Ddimer, CRP, LDH, ordered -Continue anticoagulation per System Protocol -Check procalcitonin All laboratory, cultures and imaging were reviewed. Will follow Destiny Kumar MD Infectious Diseases [facility] M [phone] O [phone] Subjective Date of service: 08/04/21 Interval history: 36-year-old female with history of seizures, multiple sclerosis, admitted on secondary to 24-hour history of fever, chills, inability to urinate associated with generalized weakness, cough congestion runny nose. Recent travel no sick contacts. Patient did not receive COVID-19 vaccine. On arrival, temperature 100.6, HR 111, RR 18, O2 sat 100%, BP 141/75. Initial WBC 2.9. Hemoglobin 13.4. Platelets 225. Urinalysis negative. SARS-CoV-2 PCR positive. Chest x- ray without consolidation. Patient is currently on room air. Review of Systems: reviewed ED and H&P notes. Review of system deferred to minimize COVID-19 transmission. Objective - Exam Narrative Exam: Physical exam deferred to minimize COVID-19 transmission during pandemic. - Constitutional Vitals: Vital Signs Temp Pulse Resp BP Pulse Ox 99.4 F 87 20 120/59 98 08/04/21 06:18 08/04/21 11:29 08/04/21 06:18 08/04/21 06:18 08/04/21 11:29 Temperature -Last 24 Hours Temperature 99.4 F Temperature 98.1 F Temperature 97.7 F Temperature 99.0 F - Labs CBC & Chem 7: 08/02/21 04:36 08/02/21 04:36
--- NOTE | 2021-08-04 13:56 | Progress Note ---
Assessment and Plan -- Multiple sclerosis exacerbation Patient started on IV steroids. requested neurology evaluation and recommendations. Neurology recommended tapering dose of IV steroid: solumedrol 250 mg iv q6, followed by prednison taper with prednosone 60 mg qd s/p iv solumedrol and then 10 mg per day dose reduction every other day. Also need MRI brain, cervical thoracic and lumbar spine with contrast when patient clinically more stable -- Seizure disorder placed on seizure precautions. Continue home medication Keppra twice daily -- COVID-19 virus infection patient resting in room air and positive for COVID-19. Continue Covid protocol for now, as patient on RA, no need for remdesivir. --Urinary retention, Morgan in place -- DVT prophylaxis Patient placed on subcutaneous heparin. -- Full code status. Daily clinical course: 08/02/21; pending neuro eval, continue supportive care. Covid test is pending, continue dexamethasone for now. Patient resting on room air. Placed on Morgan catheter for urinary retention. 08/03/21: Neurology recommended tapering dose of IV steroid, patient resting in room air and positive for COVID-19. Continue to follow clinically. Plan for MRI of brain cervical lumbar and thoracic spine with and without contrast when clinically more stable. ID consult 08/04/21: Subjective Date of service: 08/04/21 Objective - Exam Narrative Exam: GENERAL: well-developed and well-nourished -Beninese female lying on bed appeared to be in no discomfort. HEENT: Normocephalic. Atraumatic. No conjunctival congestion or icterus. Patient has moist mucous membranes. NECK: Supple. Trachea midline. CHEST/LUNGS: Clear to auscultated bilaterally, breathing nonlabored. No wheezes crackles or rhonchi. HEART/CARDIOVASCULAR: Regular in rate and rhythm. S1 and S2 positive. ABDOMEN: Abdomen is soft, nontender. Patient has normal bowel sounds. SKIN: There is no rash. Warm and dry. NEURO: Paraplegic with right-sided weakness, AAOx3 MUSCULOSKELETAL: No joint effusion or tenderness. EXTRIMITY: No edema, no cyanosis or clubbing. PSYCH: Cooperative. - Constitutional Vitals: Vital Signs - 12hr 08/04/21 08/04/21 06:18 11:29 Temperature 99.4 F Pulse Rate 69 87 Respiratory 20 Rate Blood Pressure 120/59 O2 Sat by Pulse 100 98 Oximetry - Labs CBC & Chem 7: 08/04/21 20:05 08/04/21 20:05
[2021-08-04 20:57] LABS: Hematocrit 38.8 % (30.3-42.9); Hemoglobin 12.7 gm/dl (10.1-14.3); Mean Corpuscular HGB Conc 33 % (30-34); Mean Corpuscular Volume 85 fl (79-97); Platelet Count 209 K/mm3 (140-440); Red Blood Count 4.59 M/mm3 (3.65-5.03); Red Cell Distribution Width 12.4 % (13.2-15.2)
[2021-08-04 21:08] LABS: Blood Urea Nitrogen 9 mg/dL (7-17); Calcium 8.4 mg/dL (8.4-10.2); Hemolysis Index 16
[2021-08-04 21:33] LABS: BUN/Creatinine Ratio 30
[2021-08-05] MEDS: SODIUM CHLORIDE 0.9% IV SCH (06:04)
[2021-08-05] MEDS: METHYLPREDNISOLONE SOD SUC IV SCH (06:04)
[2021-08-05] MEDS: HEPARIN 5,000 UNIT/1 ML VIAL SUB-Q SCH (06:04)
[2021-08-05] MEDS ORDERED: predniSONE 20 MG TAB PO SCH (10:00)
--- NOTE | 2021-08-05 11:36 | Cat Scan Report ---
CT cervical, thoracic, and lumbar SPINE: 08/05/2021 INDICATION / CLINICAL INFORMATION: MS OMNI 300 100 ML. COMPARISON: None available. FINDINGS: Unenhanced and enhanced CT images of the cervical, thoracic, and lumbar spine were obtained. Images a re evaluated in the axial, coronal, and sagittal planes. Cervical spine CT: There is no evidence of acute abnormality. Cervical vertebral body alignment is normal. There is no e vidence of fracture or dislocation. There is no evidence of canal or foraminal narrowing. There is no gross evidence of abnormal contrast enhancement. Subtle abnormalities of soft tissues in the canal and paraspinal soft tissues may not be well visuali zed by CT. Thoracic spine CT: There is mild right convex scoliosis of the thoracic spine present. Vertebral body height and alignment is well preserved. There is no evidence of paraspinal abnormality. There is no evidence of canal stenosis or nerve root compression. Incidental note is made of patchy consolidation in the periphery of the lung bases bilaterally, consi stent with bilateral pneumonia. Lumbar spine CT: Left convex scoliosis of the lumbar spine is present. Vertebral body alignment is no rmal. There is no evidence of canal stenosis. IMPRESSION: No significant abnormality. Scoliosis. Pulmonary disease. All CT scans at this location are performed using dose reduction to ALARA by means of automated expos ure control. Signer Name: Tank Zuleta MD Signed: 08/05/2021 11:31 AM Workstation Name: [id number]
[2021-08-05 11:43] VITALS: BP 124/56
[2021-08-05] MEDS: levETIRAcetam 500 MG/5 ML ORAL LIQD PO SCH (12:12)
[2021-08-05] MEDS: PRIMIDONE 50 MG TAB PO SCH (12:13)
[2021-08-05] MEDS: GABAPENTIN 300 MG CAP PO SCH (12:13)
[2021-08-05] MEDS: DIVALPROEX DR 500 MG TAB PO SCH (12:13)
[2021-08-05] MEDS: MULTIVITAMINS,THER W-MINERALS TAB PO SCH (12:13)
--- NOTE | 2021-08-05 12:20 | Discharge Summary ---
Providers - Providers Date of Admission: 08/01/21 22:27 Date of discharge: 08/05/21 Attending physician: KEIRA DAVALOS 08/01/21 23:20 Consult to Physician [CONS] Routine Comment: Consulting Provider: ARMANDO CASTELLANOS Physician Instructions: Reason For Exam: Multiple Sclerosis Exacerbation 08/03/21 14:50 Consult to Physician [CONS] Routine Comment: Consulting Provider: LAWRENCE FREEDMAN Physician Instructions: Reason For Exam: COVID Primary care physician: ORTHOTIST PROSTHETIST Hospitalization Condition: Stable Disposition: 30 STILL A PATIENT Final Discharge Diagnosis (Prints w/discharge instructions): -- Multiple sclerosis exacerbation. -- Seizure disorder. -- COVID-19 virus infection. --Urinary retention, due to MS flare Time spent for discharge: 34 minutes Exam - Constitutional Vitals: Temp Pulse Resp BP Pulse Ox 99.0 F 73 24 124/56 97 08/05/21 11:41 08/05/21 11:41 08/05/21 11:41 08/05/21 11:41 08/05/21 11:41 Plan Activity: fall precautions Weight Bearing Status: Non-Weight Bearing Diet: low fat Additional Instructions: Follow-up with neurologist as outpatient in 1 week. Upon discharge patient should self-quarantine at home up to 10 days from the onset of symptoms per CDC guideline. Patients should return to hospital regardless if they have worsening fevers or respiratory status. Follow-up with urologist in 1 to 2 weeks for urinary retention Follow up with: JODI SEGOVIA MD [Primary Care Provider] - 3-5 Days MARZENA SHERMAN MD [Staff Physician] - 7 Days Prescriptions: predniSONE 10 mg PO .TAPER #42 tab
--- NOTE | 2021-08-05 12:39 | Magnetic Resonance Report ---
NONENHANCED AND CONTRAST-ENHANCED MR SCAN OF THE BRAIN: INDICATION / CLINICAL INFORMATION: MS, CHAI. LEG WEAKNESS, COVID 19. TECHNIQUE: Multiplanar, multisequence MR images of the brain obtained. COMPARISON: CT scan of the head from 02/17/2019 FINDINGS: BRAIN / INTRACRANIAL CONTENTS: No acute ischemia, acute hemorrhage, mass effect, midline shift, or hy drocephalus. Considering the age, multiple focal lesions are seen in the left cerebellar hemisphere, floor of the fourth ventricle on the right side, anterior right stacy,, periventricular white matter around lateral ventricles including the temporal horns; focal white matter lesions in the deep hemisp heric white matter; no contrast enhancement; considering the age, moderate cerebral and cerebellar in volutions; volume loss in the corpus callosum; in the sagittal T1-weighted images, some of these lesi ons along the callosal septal angle with the T 1 black holes Considering the age, demyelinating disease would be my first consideration; less likely to be diffus e white matter lesions due to chronic small vessel disease CRANIOCERVICAL JUNCTION: No significant abnormality. VASCULAR FLOW-VOIDS: No significant abnormality. ORBITS: No significant abnormality of visualized orbits. SINUSES / MASTOIDS: No significant abnormality of visualized sinuses and mastoid air cells. ADDITIONAL FINDINGS: None. IMPRESSION: Extensive white matter disease in both cerebral hemispheres; there are numerous periventricular lesio ns contacting the ependymal surface including the temporal horns; cerebral and cerebellar involutions ; considering the age, demyelinating plaques would be my first consideration Signer Name: Miky Vázquez MD Signed: 08/05/2021 12:34 PM Workstation Name: [facility]
--- NOTE | 2021-08-05 12:50 | Magnetic Resonance Report ---
MRI CERVICAL SPINE WITHOUT CONTRAST INDICATION / CLINICAL INFORMATION: Multiple Sclerosis, CHAI. LEG WEAKNESS COVID 19 . TECHNIQUE: Multisequence, multiplanar images of the cervical spine were obtained. COMPARISON: None available. FINDINGS: CRANIOCERVICAL JUNCTION:No significant abnormality. ALIGNMENT: No significant abnormality. VERTEBRAE:Normal marrow signal and vertebral body height for age. VISUALIZED SPINAL CORD: Multiple focal lesions in the cervical cord; these are seen at foramen magnum , C2, C5 levels; at C5 level, mild volume loss in the cervical cord from myelomalacia; MR findings co nsistent with demyelinating disease; no intramedullary enhancing lesion [id number] ANALYSIS: C2-3: No significant disc abnormality, spinal canal stenosis, or neural foraminal stenosis. C3-4: Trace retrolisthesis; neuroforamina are normal C4-5: Trace retrolisthesis; neuroforamina are normal C5-6: No significant disc abnormality, spinal canal stenosis, or neural foraminal stenosis. C6-7: Shallow disc bulge; Neuroforamina are normal C7-T1: No significant disc abnormality, spinal canal stenosis or neural foraminal stenosis PARASPINAL SOFT TISSUES: No significant abnormality. ADDITIONAL FINDINGS: None. IMPRESSION: No focal disc herniation, spinal canal stenosis or nerve root compression. Multiple lesions in the cervical cord; consistent with demyelinating plaques Signer Name: Miky Vázquez MD Signed: 08/05/2021 12:45 PM Workstation Name: [id number]
[2021-08-05] MEDS ORDERED: CHOLECALCIFEROL (VIT D3) 5,000 UNIT TAB PO SCH (13:00)
[2021-08-05] MEDS ORDERED: ZINC SULFATE 220 MG CAP PO SCH (22:00)
[2021-08-05] MEDS ORDERED: ASCORBIC ACID 500 MG TAB PO SCH (22:00)
[2021-08-07] MEDS ORDERED: predniSONE 50 MG TAB PO SCH (10:00)
[2021-08-09] MEDS ORDERED: predniSONE 20 MG TAB PO SCH (10:00)
[2021-08-11] MEDS ORDERED: predniSONE 10 MG TAB PO SCH (10:00)
[2021-08-13] MEDS ORDERED: predniSONE 20 MG TAB PO SCH (10:00)
[2021-08-15] MEDS ORDERED: predniSONE 10 MG TAB PO SCH (10:00)
== END 2021-08-05 14:54 | disposition home or self-care (01) | DRG 871 ==
LOC: ED 13:34 → 3A 22:27
PROVIDERS: ADMIT Internal Medicine Geriatric Medicine; ATTEND Internal Medicine
DX: A41.89 Other specified sepsis (principal); U07.1 COVID-19; G35 Multiple sclerosis; G40.909 Epilepsy, unspecified, not intractable, without status epilepticus; R33.9 Retention of urine, unspecified
CPT/HCPCS: 36415; 70553; 71045; 72127; 72130; 72133; 72156; 80048; 80053; 80076; 81001; 82140; 82728; 83615; 83880; 84145; 85007; 85025; 85027; 85379; 85610; 86140; 87040; G0378; A9575; J1644; J2930; J7030; J7050; J7512; Q9967; U0003